=== PATIENT | female | born 1955 | race Caucasian/White ===

== ENCOUNTER 2021-09-09 08:37 | Outpatient (REF) | payer OTHER, SELFPAY ==
--- NOTE | ~2021-09-09 | XR_ITS ---
EXAMINATION: XR KNEE, BILATERAL XR KNEE, RIGHT XR KNEE, LEFT CLINICAL INFORMATION: Pain COMPARISON: 02/08/2021 TECHNIQUE: AP standing view of both knees. Lateral and sunrise view of both knees. FINDINGS: Left knee: No acute fracture or subluxation. Mild medial compartment joint space narrowing. Small tricompartmental marginal osteophytes. No significant joint effusion. Prominent varicosities noted. Right knee: No fracture or subluxation. Mild medial compartment joint space narrowing. Tricompartmental marginal osteophytes. No significant joint effusion. Prominent varicosities. XR/XR knee LT 2V IMPRESSION: Mild tricompartmental degenerative changes of both knees, greatest at the medial compartments.
--- NOTE | ~2021-09-09 | XR_ITS ---
EXAMINATION: XR KNEE, BILATERAL XR KNEE, RIGHT XR KNEE, LEFT CLINICAL INFORMATION: Pain COMPARISON: 02/08/2021 TECHNIQUE: AP standing view of both knees. Lateral and sunrise view of both knees. FINDINGS: Left knee: No acute fracture or subluxation. Mild medial compartment joint space narrowing. Small tricompartmental marginal osteophytes. No significant joint effusion. Prominent varicosities noted. Right knee: No fracture or subluxation. Mild medial compartment joint space narrowing. Tricompartmental marginal osteophytes. No significant joint effusion. Prominent varicosities. XR/XR knee standing BI IMPRESSION: Mild tricompartmental degenerative changes of both knees, greatest at the medial compartments.
--- NOTE | ~2021-09-09 | XR_ITS ---
EXAMINATION: XR KNEE, BILATERAL XR KNEE, RIGHT XR KNEE, LEFT CLINICAL INFORMATION: Pain COMPARISON: 02/08/2021 TECHNIQUE: AP standing view of both knees. Lateral and sunrise view of both knees. FINDINGS: Left knee: No acute fracture or subluxation. Mild medial compartment joint space narrowing. Small tricompartmental marginal osteophytes. No significant joint effusion. Prominent varicosities noted. Right knee: No fracture or subluxation. Mild medial compartment joint space narrowing. Tricompartmental marginal osteophytes. No significant joint effusion. Prominent varicosities. XR/XR knee RT 2V IMPRESSION: Mild tricompartmental degenerative changes of both knees, greatest at the medial compartments.
== END 2021-09-09 08:38 | disposition home or self-care (01) ==
LOC: HO.HOSX 08:37
PROVIDERS: Visit Provider Orthopaedic Surgery
DX: M17.12 Unilateral primary osteoarthritis, left knee (principal); M25.561 Pain in right knee
CPT/HCPCS: 73560; 73565

== ENCOUNTER 2022-03-18 06:09 | Inpatient (IN) | payer MEDICARE, OTHER, SELFPAY ==
[2022-03-11 12:15] VITALS: BP 138/80; PULSE 71; RESP 20; O2SAT 96; BMI 35.4
--- NOTE | 2022-03-11 13:08 | ECG_ITS ---
Test Reason : pre-op Blood Pressure : / mmHG Vent. Rate : 066 BPM Atrial Rate : 066 BPM P-R Int : 134 ms QRS Dur : 086 ms QT Int : 416 ms P-R-T Axes : 001 042 033 degrees QTc Int : 436 ms Sinus rhythm with occasional Premature ventricular complexes Otherwise normal ECG When compared with ECG of 23-JAN-2010 11:56, Premature ventricular complexes are now Present Referred By: Brandon Recinos Electronically Signed By:Rajeev Santana
[2022-03-11 14:29] LABS: MRSA Nasal PCR NEGATIVE (Negative); SA Nasal PCR NEGATIVE (Negative)
--- NOTE | 2022-03-17 08:53 | HO.ANESPROP2 ---
Documented by User: Stacy Zazueta NP 03/17/22 08:56 HPI - Anesthesia Eval Consult details Narrative: 67yo F for Left Knee Replacement Total PCP cleared [facility] Active Problems Active Problems: All Active Problems (Updated 03/11/22 @ 12:11 by Lo Mari RN) Osteoarthritis of left knee (Acute) Past Medical History Medical History Arthritis COVID-19 vaccine series completed Depression Elevated cholesterol Hypothyroid Palpitations Surgical History Surgical History H/O colonoscopy History of cardiac radiofrequency ablation (RFA) Hx laparoscopic cholecystectomy Hx of hemorrhoidectomy Hx of varicose vein ligation Social History Social History Household Members: Family Housing: House Are you a primary healthcare administrator to a significant other at home: No Do you presently have visiting nurse or other home services: No Patient Tobacco Use Status: Former Tobacco user Quit Date: age 30's Tobacco use type: Cigarette Use of substances other than those prescribed or required for medical reasons: No Have you been hit, kicked, punched, or otherwise hurt by someone within the past year? If so, by whom?: No Do you feel safe in your current relationship?: Yes Is there a partner from a previous relationship who is making you feel unsafe now?: No Are you made to feel afraid or neglected: No Are you DNR?: No Advance Directives: No Advance Directives Information Provided: Yes (brochure) Advance Directives on File: No Do you have thoughts of harming others: None Do you have a plan to hurt others: No Plan Recently lost weight without trying: No Eating poorly because of decreased appetite: No Nutrition Risks: No Nutritional Risk Patient : No : No Poor oral hygiene: No Meds Allergies Allergy/AdvReac Type Severity Reaction Status Date / Time Sulfa (Sulfonamide Allergy Intermediate Rash Verified 03/18/22 11:31 Antibiotics) [SULFA (SULFONAMIDE ANTIBIOTICS)] atorvastatin AdvReac Intermediate stomach Verified 03/18/22 11:31 pain Home Medications Medication Instructions Recorded Confirmed Last Taken Type aspirin 81 mg tablet,delayed 81 mg PO DAILY 09/09/21 03/11/22 03/08/22 History release (Adult Aspirin Regimen) fluoxetine 20 mg tablet 40 mg PO DAILY 09/09/21 03/11/22 03/18/22 History levothyroxine 50 mcg capsule 50 mcg PO DAILY 09/09/21 03/11/22 03/18/22 History rosuvastatin 10 mg tablet 10 mg PO DAILY 09/09/21 03/11/22 Unknown History meloxicam 15 mg tablet 1 tab PO DAILY 03/11/22 03/11/22 03/08/22 History Exam Exam Date and Time: March 17, 2022 0853 Height,Weight and Vital Signs: Height 5 ft 6 in Weight 99.5 kg Last Vital Signs Pulse 71 03/11/22 12:15 Resp 20 03/11/22 12:15 BP 138/80 03/11/22 12:15 Pulse Ox 96 03/11/22 12:15 O2 Del Method 03/11/22 12:15 Pertinent Lab Results Pertinent Lab Results: Laboratory Tests 03/11/22 03/11/22 12:30 12:55 Nasal Screen MRSA (PCR) NEGATIVE Nasal S. aureus Screen NEGATIVE Nasal MRSA/S.aureus Interp SEE NOTE Blood Type O Positive Antibody Screen NEGATIVE CBC and BMP from outside facility 03/2022 WNL Narrative Narrative: EKG 03/2022 Vent. Rate : 066 BPM ? ? Atrial Rate : 066 BPM ?? P-R Int : 134 ms? QRS Dur : 086 ms ? ? QT Int : 416 ms ? ? ? P-R-T Axes : 001 042 033 degrees ?? QTc Int : 436 ms ? Sinus rhythm with occasional Premature ventricular complexes Otherwise normal ECG When compared with ECG of 23-JAN-2010 11:56, Premature ventricular complexes are now Present Assessment and Plan Assessment Anesthesia Assessment: Chart Reviewed Documented by User: Ken Wallace MD 03/18/22 16:23 PMF Past Medical History Medical History Arthritis COVID-19 vaccine series completed Depression Elevated cholesterol Hypothyroid Palpitations Family History Family history of problems with anesthesia: No Surgical History Surgical History H/O colonoscopy History of cardiac radiofrequency ablation (RFA) Hx laparoscopic cholecystectomy Hx of hemorrhoidectomy Hx of varicose vein ligation History of Problems with Anesthesia: No Social History Social History Household Members: Family Housing: House Are you a primary healthcare administrator to a significant other at home: No Do you presently have visiting nurse or other home services: No Patient Tobacco Use Status: Former Tobacco user Quit Date: age 32's Tobacco use type: Cigarette Use of substances other than those prescribed or required for medical reasons: No Have you been hit, kicked, punched, or otherwise hurt by someone within the past year? If so, by whom?: No Do you feel safe in your current relationship?: Yes Is there a partner from a previous relationship who is making you feel unsafe now?: No Are you made to feel afraid or neglected: No Are you DNR?: No Advance Directives: No Advance Directives Information Provided: Yes (brochure) Advance Directives on File: No Do you have thoughts of harming others: None Do you have a plan to hurt others: No Plan Recently lost weight without trying: No Eating poorly because of decreased appetite: No Nutrition Risks: No Nutritional Risk Patient : No : No Poor oral hygiene: No Meds Allergies Allergy/AdvReac Type Severity Reaction Status Date / Time Sulfa (Sulfonamide Allergy Intermediate Rash Verified 03/18/22 11:31 Antibiotics) [SULFA (SULFONAMIDE ANTIBIOTICS)] atorvastatin AdvReac Intermediate stomach Verified 03/18/22 11:31 pain Home Medications Medication Instructions Recorded Confirmed Last Taken Type aspirin 81 mg tablet,delayed 81 mg PO DAILY 09/09/21 03/11/22 03/08/22 History release (Adult Aspirin Regimen) fluoxetine 20 mg tablet 40 mg PO DAILY 09/09/21 03/11/22 03/18/22 History levothyroxine 50 mcg capsule 50 mcg PO DAILY 09/09/21 03/11/22 03/18/22 History rosuvastatin 10 mg tablet 10 mg PO DAILY 09/09/21 03/11/22 Unknown History meloxicam 15 mg tablet 1 tab PO DAILY 03/11/22 03/11/22 03/08/22 History Exam Airway Mallampati Class: III TM Dist: >3cm Neck ROM: Full Partial: Upper and Lower Loose/Missing/Broken Teeth: Yes Heart: S1,S2 Lungs: b/l breath sounds Assessment and Plan Assessment Anesthesia Assessment: Anesthesia Plan Discussed Final Anesthetic Review Family History of Problems with Anesthesia: No History of Problems with Anesthesia: No NPO: Yes ASA Class: II Final Preanesthetic Review: Meds/Allgs Chart Reviewed, Consent Obtained/Reviewed and Anes Risks/Benef Reviewed Patient Risk: Intermediate Procedure Risk: Intermediate Anesthetic Plan Anesthetic Plan: Spinal and Regional Block Disposition: Standard PACU
[2022-03-18] VITALS (14 sets, daily range): BP systolic 87–166; BP diastolic 56–86; PULSE 54–77; RESP 13–18; TEMP 36.4–37.7; O2SAT 91–98
--- NOTE | ~2022-03-18 | XR_ITS ---
EXAMINATION: XR KNEE, LEFT CLINICAL INFORMATION: Left total knee arthroplasty. COMPARISON: Most recent left knee radiographs dated 09/09/2021. TECHNIQUE: AP and lateral views of the left knee. FINDINGS: Prosthetic components of the left total knee arthroplasty are appropriately aligned. No periprosthetic fracture. Gas from recent surgery is present in the joint and surrounding soft tissues. A joint effusion is present. XR/XR knee LT 2V IMPRESSION: Appropriate alignment of the left total knee arthroplasty.
[2022-03-18] MEDS: Lactated Ringers 1,000 ML 100 ML IVCONT ×3 (07:03→19:49)
[2022-03-18 07:08] LABS: COVID-19 Test Negative (Negative); IDNOW Serial# 9DB6401D
--- NOTE | 2022-03-18 07:46 | MHC.SHP ---
Pre-Procedural Eval Section A Date of Service: 03/18/22 The patient is an INPATIENT: No Changes since office visit: No Cold of Flu in the past 2 weeks, No New Medical Problems, No Changes in Medication and No Patient answered all questions The History & Physical has been completed within 30 days and I have reviewed it.: Yes Section B Chief Complaint: lt tka Allergies: Allergies Allergy/AdvReac Type Severity Reaction Status Date / Time Sulfa (Sulfonamide Allergy Intermediate Rash Verified 03/13/22 09:57 Antibiotics) [SULFA (SULFONAMIDE ANTIBIOTICS)] atorvastatin AdvReac Intermediate stomach Verified 03/13/22 09:57 pain Plan I have reviewed the history and physical and performed a pertinent physical examination on my patient. No changes have occurred unless specified.
--- NOTE | 2022-03-18 09:32 | PM.OP ---
Brief Operative Note Date of Service: 03/18/22 Pre-op diagnosis: Left knee OA Post-op diagnosis: same Procedure: Left TKA Implants: [employer] Triathalon press fit cruciate retaining s/32a Surgeon: Brandon Recinos MD Anesthesia: regional and spinal Was an Information Security Architect used for this Procedure?: Yes Information Security Architect: Neeru Villalobos Estimated blood loss (mL): 200 IV fluids (mL): 1,000 Pathology: other Condition: stable Disposition: PACU
--- NOTE | 2022-03-18 11:43 | P.OP_ITS ---
Operative Note Operative Note Date of Service: 03/18/22 Narrative: Date of Service: 03/18/22 Pre-op diagnosis: Left knee OA Post-op diagnosis: same Procedure: Left TKA Implants: Monica Triathalon press fit cruciate retaining 4/5/9cs/32a Surgeon: Brandon Recinos MD Anesthesia: regional and spinal Was an Automotive Engineering Technician used for this Procedure?: Yes Automotive Engineering Technician: Neeru Villalobos Estimated blood loss (mL): 200 IV fluids (mL): 1,000 Pathology: other Condition: stable Disposition: PACU Procedure in detail: The patient was brought to the operating room and prepped and draped in standard sterile fashion. A time-out was called to identify proper site proper procedure proper surgeon and IV antibiotics were administered. 1 g of IV tranexamic acid was administered. I began by making a midline incision to the retinaculum and performed a medial parapatellar arthrotomy. The patella was translated laterally and the knee was flexed up. The medial compartment was eburnated . I performed a small medial peel and resected the infrapatellar fat pad. [place]'s line was then used to drill my intramedullary femoral guide and my distal femur cut of 10 mm was made in 5 degrees of valgus while protecting the soft tissues. I then measured a #4 femur and placed my cutting guide and made my anterior posterior and chamfer cuts protecting the soft tissues at all times. Once I was satisfied with my cuts I turned my attention to the tibia. I removed the meniscus medially and laterally and , using an external cutting guide, in line with the tibial crest and the third ray, I made my distal tibial cut in 3 deg slope of while protecting the PCL the posterior soft tissues at all times. An extension block was used to confirm appropriate amount of bony resection. I then sized a #5 tibia and once I was satisfied that there was complete tibial coverage I placed my trial and with the trial femur in place took the knee through range of motion. I was satisfied with the extension and flexion as well as the stability and balance at 0, 30 and 90 degrees. I then turned my attention to the patella where I removed 1 cm from the undersurface of the patella and then trialed a 32a patellar button. Again the knee was taken through range of motion I was satisfied with the tracking. I then returned to the femur and drilled my femoral lug holes and prepared the tibia. A femoral bone plug was placed and the knee was irrigated copiously. I then press fit the patella, tibia and femur in standard fashion. I trialed different inserts until I selected a #9insert. The final insert was placed and a 3 minutes iodine soak with local TXA was performed. A Werewolf cautery wand was used to maintain hemostasis over the capsule and meniscal beds, the gutters and peripatellar soft tissues. The knee was then closed with a running Quill suture, a 3 0 Vicryl and alma delia on the skin. Patient was then placed in sterile dressing and brought to recovery room in stable condition there were no known complications.
[2022-03-18] MEDS: HYDROmorphone HCl 0.5 MG/0.5 ML SYRINGE 0.25 MG IVPUSH (12:15)
--- NOTE | 2022-03-18 12:19 | P.CDIC_ITS ---
CDI Concurrent Query Documentation Clarification: PHYSICIAN'S DOCUMENTATION REQUEST Date of Query: 03/18/22 1219 Patient Name: Di Terrell Admit Date: 03/18/22 Dear Doctor, A review of the medical record indicates additional documentation may be needed. Please review below and update the documentation accordingly. Risk Factors/Clinical Indicators/Treatments Body mass index: 35.4 5' 6 in height If possible, please provide an associated diagnosis related to the abnormal BMI, such as: For a BMI >= 35: * Overweight * Obesity * Due to excess calories * Drug induced * Due to other cause Or: * BMI is not significant * Other (please specify) * Unable to determine Use of terms such as suspected, likely, concern for, or probable (associated with a specific diagnosis that is being evaluated, monitored, or treated as if it exists) are acceptable and can be coded in the inpatient setting, when documented at the time of discharge. Thank you, Fiordaliza Camarena [facility], CDIS Extension: [phone] Please use your independent medical judgment in providing your response. THIS QUERY IS PART OF THE PERMANENT MEDICAL RECORD Provider Response: Obesity
[2022-03-18] MEDS: ondansetron HCL 4 MG/2 ML VIAL IVPUSH (13:04)
[2022-03-18] MEDS: Acetaminophen 325 MG TABLET 650 MG PO (13:11)
[2022-03-18] MEDS: oxyCODONE HCl Immed Release 5 MG TABLET PO ×3 (13:12→22:18)
[2022-03-18] MEDS: ceFAZolin Sodium/Dextrose,Iso 2 GM/50 ML PIGGYBACK IV (13:15)
[2022-03-18] MEDS: oxyCODONE HCl ER 10 MG TAB.ER.12H PO (19:47)
[2022-03-18] MEDS: Docusate Sodium 100 MG CAPSULE PO (19:47)
[2022-03-19] VITALS (8 sets, daily range): BP systolic 135–148; BP diastolic 68–84; PULSE 61–86; RESP 16–18; TEMP 36.6–37.6; O2SAT 91–92
[2022-03-19] MEDS: oxyCODONE HCl Immed Release 5 MG TABLET PO ×5 (02:09→21:38)
[2022-03-19] MEDS: Lactated Ringers 1,000 ML 100 ML IVCONT ×2 (05:57→17:41)
[2022-03-19] MEDS: Levothyroxine Sodium 50 MCG TABLET PO (05:57)
[2022-03-19 06:15] LABS: MANUAL DIFF FLAG NO
[2022-03-19 06:25] LABS: Basophils Percent Auto 0.3 % (0-2); Eosinophils Absolute Auto 0.1 X10*3/uL (0.0-0.4); Eosinophils Percent Auto 0.7 % (0-4); Hematocrit 33.5 % (37.0-47.0); Hemoglobin 11.2 g/dl (12.0-16.0); Imm Gran Abs Auto 0.07 X10*3/uL (0.00-0.03); Imm Gran Pct Auto 0.7 % (0.0-0.4); Lymphocytes Percent Auto 10.3 % (20-40); Mean Corpuscular HGB Conc 33.4 g/dl (31.0-35.0); Mean Corpuscular Hemoglobin 30.5 pg (27.0-33.0); Mean Corpuscular Volume 91.3 fL (80.0-98.0); Mean Platelet Volume 10.3 fL (9.4-12.3); Monocytes Absolute Auto 0.9 X10*3/uL (0.1-1.2); Monocytes Percent Auto 9.5 % (2-11); Neutrophils Absolute Auto 7.6 x10*3/uL (2.0-8.3); Neutrophils Percent Auto 78.5 % (45-73); Platelet Count 191 X10*3/uL (160-400); Red Blood Count 3.67 X10*6/uL (4.20-5.50); Red Cell Distribution Width 13.5 % (11.0-16.0); White Blood Count 9.7 X10*3/uL (4.8-10.8)
[2022-03-19 07:03] LABS: Anion Gap 9 (12-20); Blood Urea Nitrogen 13 mg/dL (9-16); Calcium 8.1 mg/dL (8.4-10.2); Carbon Dioxide 28 mmol/L (22-29); Chloride 101 mmol/L (96-108); Creatinine Clr Calc Pharmacy 107.6; Estimated Glomerular Filt Rate > 60; Glucose Fasting 125 mg/dL (60-99); Potassium 4.3 mmol/L (3.3-5.1); Sodium 134 mmol/L (135-145)
--- NOTE | 2022-03-19 07:16 | PHA.MEDREC ---
Pharmacy Consult ? Medication Reconciliation Pharmacy has reviewed the medication reconciliation completed by nursing. Morenita Bull, RonyD
--- NOTE | 2022-03-19 07:53 | PM.PNORT ---
Subjective Subjective Date of Service: 03/19/22 Interval history: POD1 status post left total knee. Patient is resting in bed. Difficult with pain management overnight. Medication adjustments made. No additional complaints. Physical Exam Vital Signs: Vital Signs: Last Vital Signs Temp 99.0 F 03/19/22 07:26 Pulse 68 03/19/22 07:26 Resp 16 03/19/22 07:26 BP 139/80 03/19/22 07:26 Pulse Ox 92 03/19/22 07:26 O2 Del Method 03/19/22 07:26 O2 Flow Rate 5 03/18/22 09:42 BMI result Body Mass Index 35.4 Const: General: cooperative, healthy appearing and no acute distress Resp: Effort & Inspection: normal respiratory effort and able to speak in complete sentences Cardio: Rate: regular rate Peripheral pulses: Peripheral pulses 2+ throughout GI: Palpation (GI): Soft to palpation Skin: Lesions: no lesions Rashes: no rashes Extrem: Other: Left knee Aquacel is clean dry and intact. Patient is able to dorsiflex and plantar flex. NVI. Procedures Date of Service Date of Service: 03/19/22 Progress Note: A&P Assessment and plan (1) Status post total knee replacement, left: Status: Acute Assessment and Plan: Continue pain mgmnt Begin aspirin for dvt ppx begin PT for left total knee arthroplasty - WBAT Dispo planning-Pending PT eval, pain mgmnt Time Spent With Patient Time: Total time spent is greater than 50% in coordination of care (as documented) at patient's floor/unit and/or counseling patient: Quality Stroke Does the patient have a stroke diagnosis?: No VTE Prior VTE?: No VTE Risk Level:: Medical - moderate - high VTE Device Contraindication: N/A - Device Ordered VTE Drug Contraindication: N/A - Med Ordered
[2022-03-19] MEDS: oxyCODONE HCl ER 10 MG TAB.ER.12H PO ×2 (09:23→20:34)
[2022-03-19] MEDS: Aspirin 325 MG TABLET PO ×2 (09:24→20:35)
[2022-03-19] MEDS: FLUoxetine HCl 20 MG CAPSULE 40 MG PO (09:25)
[2022-03-19] MEDS: Docusate Sodium 100 MG CAPSULE PO ×2 (09:25→20:35)
--- NOTE | 2022-03-19 11:30 | HO.POSTANES ---
Post Anesthesia Evaluation Post Anesthesia Evaluation Vital Signs: Vital Signs Temp Pulse Resp BP Pulse Ox O2 Del Method 03/19/22 11:12 98.3 F 70 17 144/78 H 92 Room Air 03/19/22 09:29 68 139/80 92 03/19/22 08:06 99.0 F 68 16 139/80 92 Room Air 03/19/22 03:39 98.1 F 86 18 135/84 92 Room Air Anesthesia: Spinal and Nerve Block Mental Status: Awake Pain Control: Satisfactory (difficulty controlling pain) Nausea/Vomiting: None Hydration: Adequate Anesthesia-Related Issues: No Anes. Related Issues
--- NOTE | 2022-03-19 14:54 | MHC.CM.PN ---
s/p TKA. Met with patient and her daughter regarding dc plan. Patient lives with her and daughter. Independent at baseline. PT Recommending rehab, patient and daughter agreeable to rehab. Provided them with list of SNFs in area. [facility]st choice [facility]. Daughter will discuss with family for other choices. Educated patient on HCP, she declined to complete one at this time. Referral sent to [facility].
[2022-03-19] MEDS: 0.9 % Sodium Chloride Flush 3 ML SYRINGE IVFLUSH (20:36)
[2022-03-20] MEDS: oxyCODONE HCl Immed Release 5 MG TABLET PO ×3 (02:30→12:54)
[2022-03-20] MEDS: Lactated Ringers 1,000 ML 100 ML IVCONT (02:37)
[2022-03-20 03:55] VITALS: BP 149/78; PULSE 70; RESP 17; TEMP 36.4; O2SAT 93
[2022-03-20] MEDS: Levothyroxine Sodium 50 MCG TABLET PO (06:01)
[2022-03-20 06:56] LABS: MANUAL DIFF FLAG NO
[2022-03-20 07:13] LABS: Basophils Percent Auto 0.4 % (0-2); Eosinophils Absolute Auto 0.5 X10*3/uL (0.0-0.4); Eosinophils Percent Auto 6.7 % (0-4); Hematocrit 31.3 % (37.0-47.0); Hemoglobin 10.2 g/dl (12.0-16.0); Imm Gran Abs Auto 0.05 X10*3/uL (0.00-0.03); Imm Gran Pct Auto 0.6 % (0.0-0.4); Lymphocytes Absolute Auto 0.9 X10*3/uL (1.2-4.9); Lymphocytes Percent Auto 10.8 % (20-40); Mean Corpuscular HGB Conc 32.6 g/dl (31.0-35.0); Mean Corpuscular Hemoglobin 30.2 pg (27.0-33.0); Mean Corpuscular Volume 92.6 fL (80.0-98.0); Mean Platelet Volume 10.6 fL (9.4-12.3); Monocytes Absolute Auto 0.9 X10*3/uL (0.1-1.2); Monocytes Percent Auto 11.1 % (2-11); Neutrophils Absolute Auto 5.6 x10*3/uL (2.0-8.3); Neutrophils Percent Auto 70.4 % (45-73); Platelet Count 182 X10*3/uL (160-400); Red Blood Count 3.38 X10*6/uL (4.20-5.50); Red Cell Distribution Width 13.8 % (11.0-16.0); White Blood Count 7.9 X10*3/uL (4.8-10.8)
[2022-03-20 07:15] LABS: Anion Gap 12 (12-20); Blood Urea Nitrogen 10 mg/dL (9-16); Carbon Dioxide 28 mmol/L (22-29); Chloride 104 mmol/L (96-108); Estimated Glomerular Filt Rate > 60; Glucose Fasting 107 mg/dL (60-99); Potassium 4.1 mmol/L (3.3-5.1); Sodium 140 mmol/L (135-145)
[2022-03-20 07:44] VITALS: BP 167/87; PULSE 74; RESP 18; TEMP 37.1; O2SAT 93
[2022-03-20] MEDS: FLUoxetine HCl 20 MG CAPSULE 40 MG PO (08:22)
[2022-03-20] MEDS: Aspirin 325 MG TABLET PO (08:23)
[2022-03-20] MEDS: oxyCODONE HCl ER 10 MG TAB.ER.12H PO (08:24)
[2022-03-20] MEDS: Docusate Sodium 100 MG CAPSULE PO (08:25)
--- NOTE | 2022-03-20 08:54 | P.DS_ITS ---
DS: Providers Provider Date of Service: 03/20/22 Date of admission: 03/18/22 06:09 Primary care physician: Attila Garza MD DS: Diagnosis Discharge Diagnosis (1) Status post total knee replacement, left: Status: Acute DS: Summary Hospital Course Hospital Course: The patient underwent a successful left total knee arthroplasty, was transferred to PACU and then to the floor to recover. During their stay, their vitals were stable, afebrile at 98.7. Labs were unremarkable, H/H 10.2/31.3. POD 1 she was started on ASA for DVT ppx, they also received services twice a day. Prior to discharge, their dressing was change, incision clean dry and intact, new Aquacel dressing applied and the plan was to be discharged to [facility] Time Spent with Patient Time attestation: Total time spent providing and/or coordinating discharge services: Discharge coordination time: Less than 30 minutes Quality: Safe Use of Opioids Does Pt have an Active Cancer Diagnosis on the Problem List?: No Quality: Stroke Does the patient have a stroke diagnosis?: No Physical Exam Vital Signs: Vital Signs: Last Vital Signs Temp 98.7 F 03/20/22 07:44 Pulse 74 03/20/22 07:44 Resp 18 03/20/22 07:44 BP 167/87 H 03/20/22 07:44 Pulse Ox 93 03/20/22 07:44 O2 Del Method 03/20/22 07:44 O2 Flow Rate 5 03/18/22 09:42 BMI result Body Mass Index 35.4 Const: General: cooperative, healthy appearing and no acute distress Resp: Effort & Inspection: normal respiratory effort and able to speak in complete sentences Cardio: Rate: regular rate Peripheral pulses: Peripheral pulses 2+ throughout GI: Palpation (GI): Soft to palpation Skin: General skin exam: no rashes or lesions noted Extrem: Other: incision clean dry and intact. [place] intact. No erythema or joint effusion. Calf supple nontender. Neurovascularly intact. DS: Data Data Completed and Pending Completed studies during hospitalization [Text1]: Pending at discharge 03/18/22 09:01 Surgical [PTH] Routine Labs on day of discharge: Laboratory Results - last 24 hr 03/20/22 03/20/22 06:50 06:50 WBC 7.9 RBC 3.38 L Hgb 10.2 L Hct 31.3 L MCV 92.6 MCH 30.2 MCHC 32.6 RDW 13.8 Plt Count 182 MPV 10.6 Immature Gran % (Auto) 0.6 H Neut % (Auto) 70.4 Lymph % (Auto) 10.8 L [place] % (Auto) 11.1 H Eos % (Auto) 6.7 H Baso % (Auto) 0.4 Lymph # (Auto) 0.9 L [place] # (Auto) 0.9 Eos # (Auto) 0.5 H Baso # (Auto) 0.0 Abs Immat Gran (auto) 0.05 H Absolute Neuts (auto) 5.6 Absolute Nucleated RBC 0.000 Nucleated RBC % (auto) 0.0 Sodium 140 Potassium 4.1 Chloride 104 Carbon Dioxide 28 Anion Gap 12 BUN 10 Creatinine 0.57 Estim Creat Clear Calc 117.0 Estimated GFR > 60 Fasting Glucose 107 H Calcium 8.0 L Discharge Plan Discharge Patient Disposition: Xfer SNF Discharge Diagnosis: LT TKA Referrals: Neeru Villalobos PA-C [Phys[facility]] - 2 Weeks (04/03/22 12:30 [facility] Neeru Villalobos PA-C) Discharge Medications: New oxycodone 5 mg Tablet 5 mg PO Q4H PRN (Reason: Pain, Moderate (Pain Scale 4-6) 7 Days Qty: 42 0RF Rx Instructions: Partial Fill upon patient request. docusate sodium 100 mg Capsule 100 mg PO BID 14 Days Qty: 28 0RF aspirin 325 mg Tablet 325 mg PO BID 42 Days Qty: 84 0RF acetaminophen 325 mg tablet 650 mg PO Q6H PRN (Reason: Pain, Mild (Pain Scale 1-3)) 30 Days Qty: 240 0RF Continued (DME) walker [facility] [place] Rx Instructions .MEDSUPPLY Qty: 1 0RF Rx Instructions: Folding Front wheeled walker fluoxetine 20 mg tablet 40 mg PO DAILY levothyroxine 50 mcg capsule 50 mcg PO DAILY rosuvastatin 10 mg tablet 10 mg PO DAILY Discontinued meloxicam 15 mg tablet 1 tab PO DAILY aspirin [Adult Aspirin Regimen] 81 mg tablet,delayed release (DR/EC) 81 mg PO DAILY Discharge Orders: Discharge Order (Routine); Ordered 03/20/22 Ordered By: Neeru Villalobos Diet: Regular diet Activity on Discharge: Use cane or walker Stand Alone Forms: Patient Portal Discharge page Care Plan Goals: Restore function of joint Health Concerns: none Plan of Treatment: Physical Therapy Pain management DVT prophylaxis Assessment: Physical Therapy for Total knee arthroplasty: WBAT, gait training, ROM 0-12, quad strength * Limit stair climbing * No showering, no tub bath-keep dressing clean, dry and intact * No driving x6 weeks * Continue Aspirin twice a day x 6 weeks * Follow up with [facility] in 2 weeks: * --you will also have your first out patient PT eval on the day of your post op appt-so please plan on being in the office that day for an extended period of time.
[2022-03-20 09:31] VITALS: BP 167/87; PULSE 74; O2SAT 93
--- NOTE | 2022-03-20 10:12 | MHC.CM.PN ---
Addendum entered by Nikki Catalan 03/20/22 11:53: CM INFORMED [facility] HAS RECEIVED INSURANCE AUTH NEGATIVE COVID-19 RESULTS SENT TO SNF SNF AWARE PT WILL ARRIVE AT APPROX 1300 HOURS Original Note: PT CLEARED TO DC TODAY TO [facility] HAS SUBMITTED FOR INSURANCE AUTH AND REQUESTED A PCR COVID TEST PT WILL DC [facility]IA [facility] PENDING AUTH AND PCR TEST RESULTS
[2022-03-20 11:30] LABS: Influenza A PCR NEGATIVE (Negative); Influenza B PCR NEGATIVE (Negative); Resp Syncy Virus RNA Qual PCR NEGATIVE (Negative); SARS COV2 PCR INHOUSE NEGATIVE (Negative)
[2022-03-20 11:40] VITALS: BP 126/66; PULSE 70; RESP 18; TEMP 36.7; O2SAT 91
== END 2022-03-20 13:17 | disposition skilled nursing facility (03) | DRG 326 ==
LOC: HO.SSSA 06:12 → HO.S3 10:53
PROVIDERS: Physician Assistant; Admitting Provider Orthopaedic Surgery; PCP Internal Medicine; Visit Provider Orthopaedic Surgery
PROC: 0SRD0JA Replacement of Left Knee Joint with Synthetic Substitute, Uncemented, Open Approach (ICD-10-PCS; CPT 27447; principal; 2022-03-18 07:30)
DX: M17.12 Unilateral primary osteoarthritis, left knee (principal); E03.9 Hypothyroidism, unspecified; F32.A Depression, unspecified; E66.9 Obesity, unspecified; Z68.35 Body mass index [BMI] 35.0-35.9, adult; Z20.822 Contact with and (suspected) exposure to COVID-19; Z87.891 Personal history of nicotine dependence; Z79.890 Hormone replacement therapy; Z79.899 Other long term (current) drug therapy
CPT/HCPCS: 27447; 0241U; 36415; 73560; 80048; 85025; 86850; 86900; 86901; 87635; 87640; 87641; 88305; 88311; 93005; 97110; 97116; 97162; 97530; C1776; J0131; J0690; J1170; J2250; J2405; J2795; U0003; U0005

== ENCOUNTER 2022-05-21 15:04 | Outpatient (REF) | payer MEDICARE, OTHER, SELFPAY ==
--- NOTE | ~2022-05-21 | US_ITS ---
EXAMINATION: US VENOUS ULTRASOUND WITH DOPPLER LOWER EXTREMITY, LEFT CLINICAL INFORMATION: Swelling COMPARISON: None TECHNIQUE: Ultrasound of the deep veins is performed from the hip to the calf with compression sonography and color and pulse Doppler assessment. Spectral analysis with color-flow imaging is performed. FINDINGS: There is normal venous compression and respiratory variation and augmented flow. The visualized common femoral vein, superficial femoral vein, profunda femoral vein, popliteal vein, and the trifurcation region shows no evidence of deep venous thrombosis. There is no significant popliteal fossa cyst. There is a large heterogeneous avascular soft tissue mass at the left groin. This measures 2 x 3 x 3 cm. This abuts the greater saphenous vein. It is uncertain whether this represents a hematoma, thrombosed varicosity or venous aneurysm, or possibly thrombosed pseudoaneurysm. Less likely considerations would be a soft tissue mass and an abnormal lymph node. US/US venous duplex LE IMPRESSION: No DVT demonstrated in the left lower extremity. 2 x 3 cm heterogeneous avascular soft tissue mass in the left groin of uncertain etiology. Follow-up arterial and venous insufficiency left leg ultrasound recommended for further evaluation. Findings will be communicated by the [facility] work flow operating room scheduler.
== END 2022-05-21 15:05 | disposition home or self-care (01) ==
LOC: HO.US 15:04
PROVIDERS: PCP Internal Medicine; Visit Provider Physician Assistant
DX: R60.9 Edema, unspecified (principal); M79.89 Other specified soft tissue disorders; Z96.652 Presence of left artificial knee joint
CPT/HCPCS: 93971

== ENCOUNTER 2022-06-04 08:00 | Outpatient (RCR) | payer MEDICARE, OTHER, SELFPAY ==
--- NOTE | 2022-06-24 07:25 | MHC.PT.DC ---
[facility] [place] [facility] [place] [facility] [place] [facility] [address] [phone] F: [phone] F: [phone] F: [phone] F: [phone] Physical Therapy Discharge Report Diagnosis: LEFT TKR Date of Surgery: 03/18/22 Date of Evaluation: 04/16/22 Date of Discharge: 06/12/22 Treatments to Date: 14 Cancellations to Date: 0 No Shows to Date: 0 Discharge Status: Patient Elected to Stop Discharge Summary: Minimal edema conts but Di was able to perform squat to nearly 90 degrees without any difficulty. She was challenged with glute activation during hip abd and benefitted from cuing to decreased hip hike/QL activation. Spoke with pt and dtr who feel she is independent with HEP and doing well at home. They request D/C at this time which is agreeable. Electronically signed by: Amanda Ta PT, DPT Please sign and return to therapist. Thank you for your referral.
== END 2022-06-24 07:24 | disposition home or self-care (01) ==
LOC: HO.PT 08:00
PROVIDERS: PCP Internal Medicine; Visit Provider Orthopaedic Surgery
DX: Z96.652 Presence of left artificial knee joint (principal)
CPT/HCPCS: 97110; 97116; 97161; 97530

== ENCOUNTER → 2022-06-11 09:24 | Outpatient (BNVA) | payer MEDICARE, OTHER, SELFPAY | PROVIDERS: PCP Internal Medicine; Visit Provider Surgery Vascular Surgery | DX: I72.4 Aneurysm of artery of lower extremity (principal) | CPT/HCPCS: 99202 ==

== ENCOUNTER 2022-06-12 | Outpatient (REF) | payer MEDICARE, OTHER, SELFPAY ==
--- NOTE | ~2022-06-12 | XR_ITS ---
EXAMINATION: BILATERAL KNEE X-RAY CLINICAL INFORMATION: Post knee replacement COMPARISON: Previous x-ray most recent March 2022 TECHNIQUE: Standing AP view of both knees and lateral and sunrise view of the left knee FINDINGS: Left: There is a left 3 component knee replacement in satisfactory position. No acute fracture, dislocation or x-ray evidence of loosening is seen. There is a well-corticated ossicle ossification adjacent to the medial femoral condyle likely related to old injury. There is a large joint effusion. Standing AP view of the right knee demonstrates arthritis at the medial femoral tibial joint. XR/XR knee LT 2V IMPRESSION: Left: 3 component left knee replacement in satisfactory position. Large joint effusion. Arthritis at the right medial femoral tibial joint.
--- NOTE | ~2022-06-12 | XR_ITS ---
EXAMINATION: BILATERAL KNEE X-RAY CLINICAL INFORMATION: Post knee replacement COMPARISON: Previous x-ray most recent March 2022 TECHNIQUE: Standing AP view of both knees and lateral and sunrise view of the left knee FINDINGS: Left: There is a left 3 component knee replacement in satisfactory position. No acute fracture, dislocation or x-ray evidence of loosening is seen. There is a well-corticated ossicle ossification adjacent to the medial femoral condyle likely related to old injury. There is a large joint effusion. Standing AP view of the right knee demonstrates arthritis at the medial femoral tibial joint. XR/XR knee standing BI IMPRESSION: Left: 3 component left knee replacement in satisfactory position. Large joint effusion. Arthritis at the right medial femoral tibial joint.
== END 2022-06-12 00:01 | disposition home or self-care (01) ==
LOC: HO.HOSX
PROVIDERS: Visit Provider Orthopaedic Surgery
DX: M25.562 Pain in left knee (principal)
CPT/HCPCS: 73560; 73565

== ENCOUNTER → 2022-06-12 09:13 | Outpatient (BNVA) | payer MEDICARE, OTHER, SELFPAY | PROVIDERS: PCP Internal Medicine; Visit Provider Orthopaedic Surgery | DX: Z47.1 Aftercare following joint replacement surgery (principal); Z96.652 Presence of left artificial knee joint | CPT/HCPCS: 99212 ==

== ENCOUNTER 2022-06-12 19:58 | Emergency (ER) | payer MEDICARE, OTHER, SELFPAY ==
[2022-06-12 20:30] VITALS: BP 147/77; PULSE 76; RESP 20; TEMP 37.4; O2SAT 97; BMI 33.7
--- NOTE | 2022-06-13 00:54 | ED_ITS ---
HPI - Wound/Laceration General Chief Complaint: Wound/Laceration Stated Complaint: Hand cut, bleeding since 1500 Time Seen by Provider: 06/13/22 00:54 Source: patient Mode of arrival: ambulatory Limitations: no limitations History of Present Illness HPI narrative: 67-year-old female history of pseudoaneurysm of the femoral artery, status post total left knee replacement, osteoarthritis presents to the emergency department with a laceration to right index finger status post cutting herself while slicing apples with a mandoline. Tells me that this occurred at approximately 15:00. Patient denies numbness, tingling, fevers, chills, chest pain, shortness of breath. Initially she tells me bleeding was hard to stop however at this time bleeding controlled and has slowed down. On Asa. Up-to-date on tetanus sh ot. Related Data Home Medications Medication Instructions Recorded Confirmed fluoxetine 20 mg tablet 40 mg PO DAILY 09/09/21 03/11/22 levothyroxine 50 mcg capsule 50 mcg PO DAILY 09/09/21 03/11/22 rosuvastatin 10 mg tablet 10 mg PO DAILY 09/09/21 03/11/22 Previous Rx's Medication Instructions Recorded walker #1 ea 02/26/22 acetaminophen 325 mg tablet 650 mg PO Q6H PRN Pain, Mild (Pain 03/20/22 Scale 1-3) 30 days #240 tabs aspirin 325 mg tablet 325 mg PO BID 42 days #84 tabs 03/20/22 docusate sodium 100 mg capsule 100 mg PO BID 14 days #28 caps 03/20/22 cephalexin 500 mg tablet 500 mg PO Q6H 7 days #28 tabs 06/13/22 doxycycline hyclate 100 mg capsule 100 mg PO BID 7 days #14 caps 06/13/22 Allergies Allergy/AdvReac Type Severity Reaction Status Date / Time Sulfa (Sulfonamide Allergy Intermediate Rash Verified 06/12/22 09:19 Antibiotics) [SULFA (SULFONAMIDE ANTIBIOTICS)] atorvastatin AdvReac Intermediate stomach Verified 06/12/22 09:19 pain Review of Systems Review of Systems: Constitutional : No Fever, No Chills, Cardiovascular : No Chest Pain, No SOB Respiratory : No Dyspnea Gastrointestinal : No abdominal pain Musculoskeletal : No Joint Swelling Skin : No rash, positive skin laceration Neuro : No Weakness, No Numbness Psych : No SI/HI Yes all other systems are reviewed and are negative PMFSH Past Medical History Attestation statement: The following information was validated with the patient. Source: old records reviewed and nursing notes reviewed Medical History Arthritis COVID-19 vaccine series completed Depression Elevated cholesterol Hypothyroid Palpitations Surgical History H/O colonoscopy History of cardiac radiofrequency ablation (RFA) Hx laparoscopic cholecystectomy Hx of hemorrhoidectomy Hx of varicose vein ligation Social History Social History Household Members: Family Housing: House Are you a primary home care aide to a significant other at home: No Do you presently have visiting nurse or other home services: No Patient Tobacco Use Status: Former Tobacco user Quit Date: age 30's Tobacco use type: Cigarette Advance Directives: No service: No Current occupational status: unemployed Physical Exam Vital Signs: Vital Signs: Last Vital Signs Temp 99.4 F 06/12/22 20:30 Pulse 71 06/13/22 01:25 Resp 20 06/12/22 20:30 BP 155/86 H 06/13/22 01:25 Pulse Ox 97 06/13/22 01:25 O2 Del Method 06/13/22 01:25 BMI result Body Mass Index 33.7 vss Appearance: Alert.? Oriented X3.? No acute distress.? Head: Normocephalic, atraumatic, no step-offs or deformities CVS: Pulses normal.? Respiratory: No respiratory distress. Skin: Skin warm and dry.? Normal skin color.? Normal skin turgor.? Extremities: No lower extremity edema.? No calf ttp. 5/5 strength to bilateral upper and lower extremities +small avulsion to r. distal aspect of index finger. full range of motion to all digits, 2+ radial pulses equal bilateral, no signs of foreign body, capillary refill less than 2 seconds. Neuro: Oriented X 3.? No motor deficit.? No sensory deficit. Course Reevaluation(s) Reevaluation #1: Advised patient to return with new or worsening symptoms , educated on worrisome signs and symptoms and when to return. At this time I feel comfortable discharge home with prompt PCP follow-up. Will DC on atbx Time: 00:58 MDM - Wound/Laceration MDM Narrative Medical decision making narrative: [age]-year-old female presents to the emergency department with laceration to right index finger status post cutting herself while slicing apples. Tetanus status up-to-date. Denies numbness or tingling. Physical examination with aulsion to r distal aspect of index finger however full range of motion to all digits, 2+ radial pulses equal bilateral, no signs of foreign body, capillary refill less than 2 seconds. Low suspicion for fracture, dislocation as patient has full range of motion, neurovascular status intact. No need for imaging at this time. Will apply Surgicel and give Boostrix shot. Medical Records Attestation: I reviewed the patient's medical records. Lab Data Attestation: I reviewed the patient's lab results. Critical Care Time Critical Care Time Critical Care Time: No Discharge Plan Discharge Clinical Impression: Avulsion of skin Patient Disposition: Home, Self-Care Additional Instructions: Take your medications as prescribed. If you were prescribed antibiotics today, it is important that you take your medication to their entirety, do not skip any doses, do not finish them early. Follow-up with your primary care provider this week. Return to the emergency department with new or worsening symptoms. Such as fevers, chills, chest pain, shortness of breath, nausea, vomiting, dizziness, headache, vision changes, lethargy numbness, tingling, loss of sensation, pain with range of motion, redness or swelling or discharge from the site In case of emergency call 911 Keep dressing on for 24-48 hours. Prescriptions: New doxycycline hyclate 100 mg capsule 100 mg PO BID 7 Days Qty: 14 0RF cephalexin 500 mg tablet 500 mg PO Q6H 7 Days Qty: 28 0RF No Action (DME) walker Misc See Rx Instructions .MEDSUPPLY Qty: 1 0RF Rx Instructions: Folding Front wheeled walker docusate sodium 100 mg Capsule 100 mg PO BID 14 Days Qty: 28 0RF aspirin 325 mg Tablet 325 mg PO BID 42 Days Qty: 84 0RF acetaminophen 325 mg tablet 650 mg PO Q6H PRN (Reason: Pain, Mild (Pain Scale 1-3)) 30 Days Qty: 240 0RF fluoxetine 20 mg tablet 40 mg PO DAILY levothyroxine 50 mcg capsule 50 mcg PO DAILY rosuvastatin 10 mg tablet 10 mg PO DAILY Referrals: Attila Garza MD [Primary Care Provider] - 2 days Stand Alone Forms: Work/School Release
[2022-06-13 01:25] VITALS: BP 155/86; PULSE 71; O2SAT 97
== END 2022-06-13 02:01 | disposition home or self-care (01) ==
PROVIDERS: Emergency Provider Internal Medicine; PCP Internal Medicine
DX: S61.211A Laceration without foreign body of left index finger without damage to nail, initial encounter (principal); W27.8XXA Contact with other nonpowered hand tool, initial encounter; Y93.9 Activity, unspecified; Y92.000 Kitchen of unspecified non-institutional (private) residence as the place of occurrence of the external cause; Y99.9 Unspecified external cause status; Z79.899 Other long term (current) drug therapy
CPT/HCPCS: 99283

== ENCOUNTER 2022-06-19 16:55 | Outpatient (REF) | payer MEDICARE, OTHER, SELFPAY ==
[2022-06-19 17:04] LABS: MANUAL DIFF FLAG NO
[2022-06-19 17:23] LABS: Basophils Percent Auto 0.6 % (0-2); Eosinophils Absolute Auto 0.3 X10*3/uL (0.0-0.4); Eosinophils Percent Auto 3.6 % (0-4); Hematocrit 34.8 % (37.0-47.0); Hemoglobin 11.4 g/dl (12.0-16.0); Imm Gran Abs Auto 0.05 X10*3/uL (0.00-0.03); Imm Gran Pct Auto 0.7 % (0.0-0.4); Lymphocytes Absolute Auto 1.8 X10*3/uL (1.2-4.9); Lymphocytes Percent Auto 25.7 % (20-40); Mean Corpuscular HGB Conc 32.8 g/dl (31.0-35.0); Mean Corpuscular Hemoglobin 28.6 pg (27.0-33.0); Mean Corpuscular Volume 87.2 fL (80.0-98.0); Monocytes Absolute Auto 0.7 X10*3/uL (0.1-1.2); Monocytes Percent Auto 9.6 % (2-11); Neutrophils Absolute Auto 4.1 x10*3/uL (2.0-8.3); Neutrophils Percent Auto 59.8 % (45-73); Platelet Count 286 X10*3/uL (160-400); Red Blood Count 3.99 X10*6/uL (4.20-5.50); Red Cell Distribution Width 14.1 % (11.0-16.0); White Blood Count 6.9 X10*3/uL (4.8-10.8)
[2022-06-19 17:54] LABS: Anion Gap 18 (12-20); Blood Urea Nitrogen 22 mg/dL (9-16); Calcium 9.5 mg/dL (8.4-10.2); Carbon Dioxide 27 mmol/L (22-29); Chloride 102 mmol/L (96-108); Estimated Glomerular Filt Rate > 60; Glucose Random 150 mg/dL (60-115); Potassium 4.5 mmol/L (3.3-5.1); Sodium 142 mmol/L (135-145)
== END 2022-06-19 16:56 | disposition home or self-care (01) ==
LOC: HO.LAB 16:55
PROVIDERS: Orthopaedic Surgery; Visit Provider Surgery Vascular Surgery
DX: Z01.812 Encounter for preprocedural laboratory examination (principal)
CPT/HCPCS: 36415; 80048; 85025

== ENCOUNTER 2022-06-23 09:20 | Outpatient (REF) | payer MEDICARE, OTHER, SELFPAY ==
--- NOTE | ~2022-06-23 | CT_ITS ---
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 Images were reviewed on a dedicated 3-D workstation. This CT examination was performed using dose optimization techniques as appropriate, variously including the following: *Automated exposure control *Adjustment of mA and/or kV according to patient size (this includes techniques or standardized protocols for targeted exams where dose is matched to indication/reason for exam; i.e. extremities or head) *Use of iterative reconstruction technique DLP: 351 mGy-cm FINDINGS: Lower chest: Unremarkable. There are no pleural effusions. Liver: Normal in size and attenuation. There is a 1.3 cm left hepatic lobe cyst. Gallbladder and bile ducts: There has been prior cholecystectomy. No intrahepatic or extrahepatic biliary ductal dilatation. Spleen: Normal in size and attenuation. Pancreas: Unremarkable. Adrenal glands: Unremarkable. Right kidney: The right kidney is normal. There is no hydronephrosis or hydroureter. Left kidney: The left kidney is normal. There is no hydronephrosis or hydroureter. Lymph nodes: There are bilateral prominent inguinal lymph nodes. Gastrointestinal tract: The stomach, small, and large bowel are normal in course and caliber. The appendix is identified and is within normal limits. Urinary bladder: The bladder is normal. Pelvic organs: The uterus is unremarkable. Vasculature: The abdominal aorta is normal in course and caliber. Minimal calcific atherosclerotic disease. The celiac artery, SMA, single right renal artery, 2 left renal arteries, and COLEMAN are patent. The iliofemoral arteries are patent. The IVC and iliofemoral veins are patent and normal in caliber. There are multiple subcutaneous varicosities in the anterior pelvis. In the left inguinal region, there is a 2.5 cm peripherally enhancing from both cysts varix, possibly the proximal inferior epigastric vein. Additional findings: There is no intraperitoneal free air or fluid. Soft tissues: Unremarkable. Osseous structures: No lytic or blastic lesions identified. CT/CT angio abdomen pelvis IMPRESSION: Thrombosed anterior pelvic wall varix in the left inguinal region corresponds to the abnormality identified on the previous ultrasound. This possibly arises from the proximal inferior epigastric vein.
[2022-06-23] MEDS: iohexoL 350 MG/ML 100 ML INFUS..BTL IV (10:03)
== END 2022-06-23 09:21 | disposition home or self-care (01) ==
LOC: HO.CT 09:20
PROVIDERS: PCP Internal Medicine; Visit Provider Surgery Vascular Surgery
DX: I72.4 Aneurysm of artery of lower extremity (principal)
CPT/HCPCS: 74174; Q9967

== ENCOUNTER → 2022-07-29 15:18 | Outpatient (BNVA) | payer MEDICARE, OTHER, SELFPAY | PROVIDERS: PCP Internal Medicine; Visit Provider Surgery Vascular Surgery | DX: R10.32 Left lower quadrant pain (principal) | CPT/HCPCS: 99212 ==

== ENCOUNTER → 2022-09-12 09:22 | Outpatient (BNVA) | payer MEDICARE, SELFPAY | PROVIDERS: PCP Internal Medicine; Visit Provider Orthopaedic Surgery | DX: Z96.652 Presence of left artificial knee joint (principal) | CPT/HCPCS: 99212 ==

== ENCOUNTER 2022-09-22 15:56 | Emergency (ER) | payer MEDICARE, SELFPAY ==
--- NOTE | ~2022-09-22 | CT_ITS ---
EXAMINATION: CT ANGIOGRAM OF THE CHEST WITH AND WITHOUT CONTRAST (CT PULMONARY ANGIOGRAM FOR PE) CLINICAL INFORMATION: Reason for Exam cp with elevated d dimer COMPARISON: Chest radiograph from today TECHNIQUE: Prior to contrast administration, noncontrast localization images were obtained. Subsequently, multidetector volumetric imaging was performed from the thoracic inlet to below the diaphragms following the administration of 65 mL Omnipaque 350 intravenous contrast. No contrast reaction reported Sagittal, coronal, and MIP oblique sagittal reformatted images were obtained on the CT workstation, uploaded to PACS, and reviewed. This CT examination was performed using dose optimization techniques as appropriate, variously including the following: *Automated exposure control *Adjustment of mA and/or kV according to patient size (this includes techniques or standardized protocols for targeted exams where dose is matched to indication/reason for exam; i.e. extremities or head) *Use of iterative reconstruction technique Total exam dose-length product 407 mGy-cm FINDINGS: QUALITY OF STUDY/CONTRAST BOLUS: Satisfactory. PULMONARY ARTERIES: No central or segmental pulmonary emboli. THORACIC AORTA: No aneurysm or dissection. LUNG: No focal consolidation, nodules or masses. The central airways are patent. Minimal groundglass opacity at the bases, favoring atelectasis. PLEURA: No pleural effusion or pneumothorax. MEDIASTINUM: Prominent heart size. No pericardial effusion. No hilar or mediastinal lymphadenopathy. No evidence of septal bowing or right heart strain. CORONARY ARTERY CALCIFICATION: None visualized on this study. CHEST WALL/AXILLA: No axillary or internal mammary lymphadenopathy. OSSEOUS STRUCTURES: No acute or suspicious osseous abnormality. Multilevel degenerative changes throughout the spine. UPPER ABDOMEN: Cyst noted in the left lobe of the liver. Cholecystectomy. No acute abnormality in the visualized upper abdomen. No reflux of contrast into the hepatic veins to suggest elevated right heart pressures. CT/CT angio chest PE protocol IMPRESSION: No pulmonary embolism or other acute intrathoracic abnormality. VTE: negative
--- NOTE | ~2022-09-22 | XR_ITS ---
EXAMINATION: XR CHEST CLINICAL INFORMATION: Chest pain COMPARISON: None TECHNIQUE: Frontal view of the chest was obtained. FINDINGS: Bibasilar atelectasis. No pneumothorax. Trachea is midline. Cardiomediastinal silhouette is not enlarged. No large pleural effusion. Levocurvature of the thoracolumbar junction. Soft tissues are unremarkable. XR/XR chest 1V IMPRESSION: Bibasilar atelectasis.
[2022-09-22 16:02] VITALS: BP 170/121; PULSE 70; RESP 20; TEMP 36.6; O2SAT 99; BMI 35.3
--- NOTE | 2022-09-22 16:02 | ECG_ITS ---
Test Reason : CP Blood Pressure : / mmHG Vent. Rate : 072 BPM Atrial Rate : 072 BPM P-R Int : 140 ms QRS Dur : 082 ms QT Int : 372 ms P-R-T Axes : 005 023 036 degrees QTc Int : 407 ms Normal sinus rhythm Normal ECG When compared with ECG of 11-MAR-2022 13:10, Premature ventricular complexes are no longer Present Referred By: Felipe Arrington Electronically Signed By:LIBRADO BARRETT MD
--- NOTE | 2022-09-22 16:06 | ED_ITS ---
HPI - General Adult General Chief complaint: Chest Pain <АЛЕКСАНДР Navarrete - Last Filed: 09/23/22 11:29> Stated complaint: chest pain <АЛЕКСАНДР Navarrete - Last Filed: 09/23/22 11:29> Time Seen by Provider: 09/22/22 16:49 <АЛЕКСАНДР Navarrete - Last Filed: 09/23/22 11:29> Source: patient and family <Homero Samson MD - Last Filed: 09/22/22 22:48> Mode of arrival: ambulatory <Homero Samson MD - Last Filed: 09/22/22 22:48> Limitations: no limitations <Homero Samson MD - Last Filed: 09/22/22 22:48> History of Present Illness HPI narrative: Patient's history of cardiac arrhythmias status post ablation about 15 years ago no known coronary artery disease brought by her daughter for having left-sided chest pain for last 5 days off and on patient had chest pain 5 days ago lasted for 10 minutes stated in the left side of the chest felt like heav iness and pressure without any radiation no shortness of last 4 days patient have much pain today again she had pain similar to that started at noon time and still feels heaviness on the left side of the chest denies any palpitation feels slightly short of breath on ambulation also complaining of heartburn feeling which is separate and left-sided heaviness also has nausea no diaphoresis feels left ring finger is numb no cough patient took 324 mg aspirin prior to arrival takes baby aspirin daily <Homero Samson MD - Last Filed: 09/22/22 22:48> Related Data Home medications: Home Medications Medication Instructions Recorded Confirmed fluoxetine 20 mg tablet 40 mg PO DAILY 09/09/21 03/11/22 levothyroxine 50 mcg capsule 50 mcg PO DAILY 09/09/21 03/11/22 rosuvastatin 10 mg tablet 10 mg PO DAILY 09/09/21 03/11/22 aspirin 81 mg tablet,delayed 81 mg PO DAILY 09/12/22 release (Adult Low Dose Aspirin) Previous Rx's Medication Instructions Recorded walker #1 ea 02/26/22 acetaminophen 325 mg tablet 650 mg PO Q6H PRN Pain, Mild (Pain 03/20/22 Scale 1-3) 30 days #240 tabs <АЛЕКСАНДР Navarrete - Last Filed: 09/23/22 11:29> Allergies/adverse reactions: Allergies Allergy/AdvReac Type Severity Reaction Status Date / Time Sulfa (Sulfonamide Allergy Intermediate Rash Verified 07/29/22 15:26 Antibiotics) [SULFA (SULFONAMIDE ANTIBIOTICS)] atorvastatin AdvReac Intermediate stomach Verified 07/29/22 15:26 pain <АЛЕКСАНДР Navarrete - Last Filed: 09/23/22 11:29> Review of Systems Review of Systems: Yes all other systems are reviewed and are negative <Homero Samson MD - Last Filed: 09/22/22 22:48> PMF Past Medical History Medical History: Medical History Arthritis COVID-19 vaccine series completed Depression Elevated cholesterol Hypothyroid Palpitations <АЛЕКСАНДР Navarrete - Last Filed: 09/23/22 11:29> Surgical History: Surgical History H/O colonoscopy History of cardiac radiofrequency ablation (RFA) Hx laparoscopic cholecystectomy Hx of hemorrhoidectomy Hx of varicose vein ligation <АЛЕКСАНДР Navarrete - Last Filed: 09/23/22 11:29> Social History Social History: Social History Household Members: Family Housing: House Are you a primary pet care worker to a significant other at home: No Do you presently have visiting nurse or other home services: No Patient Tobacco Use Status: Former Tobacco user Quit Date: age 32's Tobacco use type: Cigarette Advance Directives: No Advance Directives Information Provided: No service: No Current occupational status: unemployed <АЛЕКСАНДР Navarrete - Last Filed: 09/23/22 11:29> Physical Exam ED Vital Signs: Vital Signs - 24 hr 09/22/22 16:02 09/22/22 17:23 09/22/22 20:00 Temperature 97.8 F Pulse Rate 70 64 70 Respiratory Rate 20 14 18 Blood Pressure 170/121 H 134/80 121/85 Pulse Oximetry 99 96 97 Oxygen Delivery Method Room Air Room Air Room Air 09/22/22 21:54 Temperature 97.4 F Pulse Rate 66 Respiratory Rate 17 Blood Pressure 141/90 H Pulse Oximetry 97 Oxygen Delivery Method Room Air BMI result Body Mass Index 35.3 <АЛЕКСАНДР Navarrete - Last Filed: 09/23/22 11:29> Vital Signs - 24 hr 09/22/22 16:02 09/22/22 17:23 09/22/22 20:00 Temperature 97.8 F Pulse Rate 70 64 70 Respiratory Rate 20 14 18 Blood Pressure 170/121 H 134/80 121/85 Pulse Oximetry 99 96 97 Oxygen Delivery Method Room Air Room Air Room Air 09/22/22 21:54 Temperature 97.4 F Pulse Rate 66 Respiratory Rate 17 Blood Pressure 141/90 H Pulse Oximetry 97 Oxygen Delivery Method Room Air BMI result Body Mass Index 35.3 <Homero Samson MD - Last Filed: 09/22/22 22:48> Appearance: Alert. Oriented X3. No acute distress. Eyes: PERRLA, No Nystagmus ENT: Pharynx normal. Oral Mucosa moist Neck: Normal inspection. Neck supple. CVS: Normal heart rate and rhythm. Pulses normal. Respiratory: No respiratory distress. Equal air entry bilateral, no wheezing/rales/rhonchi Abdomen: Soft and nontender. Bowel sounds are present, no mass palpable, no CVA tenderness Skin: Skin warm and dry. Normal skin color. Normal skin turgor. Extremities: No lower extremity edema. No calf tenderness Neuro: Oriented X 3. No motor deficit. No sensory deficit.No cerebellar signs , cranial nerves II-XII intact <Homero Samson MD - Last Filed: 09/22/22 22:48> Course Course Course Narrative: RME: 67 yold female with intermetent chest pain for about week with also acid burning sensation. NEgative for leg swelling, pitting edema, calf pain, recent long travel, recent surgery, or estrogen use. labs and EKG ordered <АЛЕКСАНДР Navarrete - Last Filed: 09/23/22 11:29> Medications Administered Discontinued Medications Generic Name Dose Route Start Last Admin Trade Name Freq PRN Reason Stop Dose Admin Iohexol 100 ml 09/22/22 20:50 09/22/22 20:50 Iohexol 350 Mg/Ml 100 Ml Infus..Btl IV 09/22/22 20:51 65 ml ONCE ONE Administration <АЛЕКСАНДР Navarrete - Last Filed: 09/23/22 11:29> Medications Administered Discontinued Medications Generic Name Dose Route Start Last Admin Trade Name Kiara PRN Reason Stop Dose Admin Iohexol 100 ml 09/22/22 20:50 09/22/22 20:50 Iohexol 350 Mg/Ml 100 Ml Infus..Btl IV 09/22/22 20:51 65 ml ONCE ONE Administration <Homero Samson MD - Last Filed: 09/22/22 22:48> Medical Decision Making Medical Decision Making [facility] Narrative: Patient with chest pain for last 5 6 days EKG without any ischemic changes 2 sets of Hycet troponin negative D-dimer slightly elevated CTA chest was done which was negative for PE. Patient asymptomatic at this time advised to continu e aspirin follow up with film editor for further evaluation including the stress test <Homero Samson MD - Last Filed: 09/22/22 22:48> Lab Data [facility] Lab Attestation statement: I reviewed the patient's lab results. <Homero Samson MD - Last Filed: 09/22/22 22:48> Result Diagrams: 09/22/22 16:21 09/22/22 16:21 <АЛЕКСАНДР Navarrete - Last Filed: 09/23/22 11:29> Labs: Lab Results 09/22/22 09/22/22 09/22/22 Range/Units 16:20 16:21 16:21 WBC 6.2 (4.8-10.8) X10*3/uL RBC 4.34 (4.20-5.50) X10*6/uL Hgb 12.7 (12.0-16.0) g/dl Hct 38.8 (37.0-47.0) % MCV 89.4 (80.0-98.0) fL MCH 29.3 (27.0-33.0) pg MCHC 32.7 (31.0-35.0) g/dl RDW 14.7 (11.0-16.0) % Plt Count 245 (160-400) X10*3/uL MPV 10.3 (9.4-12.3) fL Immature Gran % (Auto) 0.8 H (0.0-0.4) % Neut % (Auto) 57.3 (45-73) % Lymph % (Auto) 24.0 (20-40) % [place] % (Auto) 10.4 (2-11) % Eos % (Auto) 6.5 H (0-4) % Baso % (Auto) 1.0 (0-2) % Lymph # (Auto) 1.5 (1.2-4.9) X10*3/uL [place] # (Auto) 0.6 (0.1-1.2) X10*3/uL Eos # (Auto) 0.4 (0.0-0.4) X10*3/uL Baso # (Auto) 0.1 (0.0-0.2) X10*3/uL Abs Immat Gran (auto) 0.05 H (0.00-0.03) X10*3/uL Absolute Neuts (auto) 3.5 (2.0-8.3) x10*3/uL Absolute Nucleated RBC 0.000 (0.0-0.012) X10*3/uL Nucleated RBC % (auto) 0.0 (0.0-0.2) /100WBC PT 10.7 (10.0-13.1) SEC INR 0.9 (0.9-1.1) APTT 32.1 (26.0-36.4) SEC D-Dimer High Sensitivty 502 NG/ML Sodium (135-145) mmol/L Potassium (3.3-5.1) mmol/L Chloride (96-108) mmol/L Carbon Dioxide (22-29) mmol/L Anion Gap (12-20) BUN (9-16) mg/dL Creatinine (0.5-1.4) mg/dL Estim Creat Clear Calc Estimated GFR Random Glucose (60-115) mg/dL Calcium (8.4-10.2) mg/dL Total Bilirubin (0.0-1.0) mg/dL AST (5-31) U/L ALT (0-31) U/L Alkaline Phosphatase (39-117) U/L Troponin I High Sens (<3.5-17.0) ng/L B-Natriuretic Peptide (<100) pg/mL Total Protein (6.5-8.0) g/dL Albumin (3.5-5.0) g/dL Lipase (8-78) U/L Influenza Type A (PCR) NEGATIVE (Negative) Influenza Type B (PCR) NEGATIVE (Negative) RSV RNA Qual (PCR) NEGATIVE (Negative) SARS-CoV-2 RNA (RT-PCR) NEGATIVE (Negative) 09/22/22 09/22/22 09/22/22 Range/Units 16:21 16:21 16:21 WBC (4.8-10.8) X10*3/uL RBC (4.20-5.50) X10*6/uL Hgb (12.0-16.0) g/dl Hct (37.0-47.0) % MCV (80.0-98.0) fL MCH (27.0-33.0) pg MCHC (31.0-35.0) g/dl RDW (11.0-16.0) % Plt Count (160-400) X10*3/uL MPV (9.4-12.3) fL Immature Gran % (Auto) (0.0-0.4) % Neut % (Auto) (45-73) % Lymph % (Auto) (20-40) % [place] % (Auto) (2-11) % Eos % (Auto) (0-4) % Baso % (Auto) (0-2) % Lymph # (Auto) (1.2-4.9) X10*3/uL [place] # (Auto) (0.1-1.2) X10*3/uL Eos # (Auto) (0.0-0.4) X10*3/uL Baso # (Auto) (0.0-0.2) X10*3/uL Abs Immat Gran (auto) (0.00-0.03) X10*3/uL Absolute Neuts (auto) (2.0-8.3) x10*3/uL Absolute Nucleated RBC (0.0-0.012) X10*3/uL Nucleated RBC % (auto) (0.0-0.2) /100WBC PT (10.0-13.1) SEC INR (0.9-1.1) APTT (26.0-36.4) SEC D-Dimer High Sensitivty NG/ML Sodium 142 (135-145) mmol/L Potassium 4.3 (3.3-5.1) mmol/L Chloride 107 (96-108) mmol/L Carbon Dioxide 26 (22-29) mmol/L Anion Gap 13 (12-20) BUN 23 H (9-16) mg/dL Creatinine 0.68 (0.5-1.4) mg/dL Estim Creat Clear Calc 98.0 Estimated GFR > 60 Random Glucose 98 (60-115) mg/dL Calcium 8.9 D (8.4-10.2) mg/dL Total Bilirubin 0.4 (0.0-1.0) mg/dL AST 17 (5-31) U/L ALT 18 (0-31) U/L Alkaline Phosphatase 67 (39-117) U/L Troponin I High Sens < 3.5 (<3.5-17.0) ng/L B-Natriuretic Peptide 64 (<100) pg/mL Total Protein 7.1 (6.5-8.0) g/dL Albumin 4.4 (3.5-5.0) g/dL Lipase 30 (8-78) U/L Influenza Type A (PCR) (Negative) Influenza Type B (PCR) (Negative) RSV RNA Qual (PCR) (Negative) SARS-CoV-2 RNA (RT-PCR) (Negative) 09/22/22 Range/Units 19:35 WBC (4.8-10.8) X10*3/uL RBC (4.20-5.50) X10*6/uL Hgb (12.0-16.0) g/dl Hct (37.0-47.0) % MCV (80.0-98.0) fL MCH (27.0-33.0) pg MCHC (31.0-35.0) g/dl RDW (11.0-16.0) % Plt Count (160-400) X10*3/uL MPV (9.4-12.3) fL Immature Gran % (Auto) (0.0-0.4) % Neut % (Auto) (45-73) % Lymph % (Auto) (20-40) % [place] % (Auto) (2-11) % Eos % (Auto) (0-4) % Baso % (Auto) (0-2) % Lymph # (Auto) (1.2-4.9) X10*3/uL [place] # (Auto) (0.1-1.2) X10*3/uL Eos # (Auto) (0.0-0.4) X10*3/uL Baso # (Auto) (0.0-0.2) X10*3/uL Abs Immat Gran (auto) (0.00-0.03) X10*3/uL Absolute Neuts (auto) (2.0-8.3) x10*3/uL Absolute Nucleated RBC (0.0-0.012) X10*3/uL Nucleated RBC % (auto) (0.0-0.2) /100WBC PT (10.0-13.1) SEC INR (0.9-1.1) APTT (26.0-36.4) SEC D-Dimer High Sensitivty NG/ML Sodium (135-145) mmol/L Potassium (3.3-5.1) mmol/L Chloride (96-108) mmol/L Carbon Dioxide (22-29) mmol/L Anion Gap (12-20) BUN (9-16) mg/dL Creatinine (0.5-1.4) mg/dL Estim Creat Clear Calc Estimated GFR Random Glucose (60-115) mg/dL Calcium (8.4-10.2) mg/dL Total Bilirubin (0.0-1.0) mg/dL AST (5-31) U/L ALT (0-31) U/L Alkaline Phosphatase (39-117) U/L Troponin I High Sens < 3.5 (<3.5-17.0) ng/L B-Natriuretic Peptide (<100) pg/mL Total Protein (6.5-8.0) g/dL Albumin (3.5-5.0) g/dL Lipase (8-78) U/L Influenza Type A (PCR) (Negative) Influenza Type B (PCR) (Negative) RSV RNA Qual (PCR) (Negative) SARS-CoV-2 RNA (RT-PCR) (Negative) <АЛЕКСАНДР Navarrete - Last Filed: 09/23/22 11:29> Lab Results 09/22/22 09/22/22 09/22/22 Range/Units 16:20 16:21 16:21 WBC 6.2 (4.8-10.8) X10*3/uL RBC 4.34 (4.20-5.50) X10*6/uL Hgb 12.7 (12.0-16.0) g/dl Hct 38.8 (37.0-47.0) % MCV 89.4 (80.0-98.0) fL MCH 29.3 (27.0-33.0) pg MCHC 32.7 (31.0-35.0) g/dl RDW 14.7 (11.0-16.0) % Plt Count 245 (160-400) X10*3/uL MPV 10.3 (9.4-12.3) fL Immature Gran % (Auto) 0.8 H (0.0-0.4) % Neut % (Auto) 57.3 (45-73) % Lymph % (Auto) 24.0 (20-40) % [place] % (Auto) 10.4 (2-11) % Eos % (Auto) 6.5 H (0-4) % Baso % (Auto) 1.0 (0-2) % Lymph # (Auto) 1.5 (1.2-4.9) X10*3/uL [place] # (Auto) 0.6 (0.1-1.2) X10*3/uL Eos # (Auto) 0.4 (0.0-0.4) X10*3/uL Baso # (Auto) 0.1 (0.0-0.2) X10*3/uL Abs Immat Gran (auto) 0.05 H (0.00-0.03) X10*3/uL Absolute Neuts (auto) 3.5 (2.0-8.3) x10*3/uL Absolute Nucleated RBC 0.000 (0.0-0.012) X10*3/uL Nucleated RBC % (auto) 0.0 (0.0-0.2) /100WBC PT 10.7 (10.0-13.1) SEC INR 0.9 (0.9-1.1) APTT 32.1 (26.0-36.4) SEC D-Dimer High Sensitivty 502 NG/ML Sodium (135-145) mmol/L Potassium (3.3-5.1) mmol/L Chloride (96-108) mmol/L Carbon Dioxide (22-29) mmol/L Anion Gap (12-20) BUN (9-16) mg/dL Creatinine (0.5-1.4) mg/dL Estim Creat Clear Calc Estimated GFR Random Glucose (60-115) mg/dL Calcium (8.4-10.2) mg/dL Total Bilirubin (0.0-1.0) mg/dL AST (5-31) U/L ALT (0-31) U/L Alkaline Phosphatase (39-117) U/L Troponin I High Sens (<3.5-17.0) ng/L B-Natriuretic Peptide (<100) pg/mL Total Protein (6.5-8.0) g/dL Albumin (3.5-5.0) g/dL Lipase (8-78) U/L Influenza Type A (PCR) NEGATIVE (Negative) Influenza Type B (PCR) NEGATIVE (Negative) RSV RNA Qual (PCR) NEGATIVE (Negative) SARS-CoV-2 RNA (RT-PCR) NEGATIVE (Negative) 09/22/22 09/22/22 09/22/22 Range/Units 16:21 16:21 16:21 WBC (4.8-10.8) X10*3/uL RBC (4.20-5.50) X10*6/uL Hgb (12.0-16.0) g/dl Hct (37.0-47.0) % MCV (80.0-98.0) fL MCH (27.0-33.0) pg MCHC (31.0-35.0) g/dl RDW (11.0-16.0) % Plt Count (160-400) X10*3/uL MPV (9.4-12.3) fL Immature Gran % (Auto) (0.0-0.4) % Neut % (Auto) (45-73) % Lymph % (Auto) (20-40) % [place] % (Auto) (2-11) % Eos % (Auto) (0-4) % Baso % (Auto) (0-2) % Lymph # (Auto) (1.2-4.9) X10*3/uL [place] # (Auto) (0.1-1.2) X10*3/uL Eos # (Auto) (0.0-0.4) X10*3/uL Baso # (Auto) (0.0-0.2) X10*3/uL Abs Immat Gran (auto) (0.00-0.03) X10*3/uL Absolute Neuts (auto) (2.0-8.3) x10*3/uL Absolute Nucleated RBC (0.0-0.012) X10*3/uL Nucleated RBC % (auto) (0.0-0.2) /100WBC PT (10.0-13.1) SEC INR (0.9-1.1) APTT (26.0-36.4) SEC D-Dimer High Sensitivty NG/ML Sodium 142 (135-145) mmol/L Potassium 4.3 (3.3-5.1) mmol/L Chloride 107 (96-108) mmol/L Carbon Dioxide 26 (22-29) mmol/L Anion Gap 13 (12-20) BUN 23 H (9-16) mg/dL Creatinine 0.68 (0.5-1.4) mg/dL Estim Creat Clear Calc 98.0 Estimated GFR > 60 Random Glucose 98 (60-115) mg/dL Calcium 8.9 D (8.4-10.2) mg/dL Total Bilirubin 0.4 (0.0-1.0) mg/dL AST 17 (5-31) U/L ALT 18 (0-31) U/L Alkaline Phosphatase 67 (39-117) U/L Troponin I High Sens < 3.5 (<3.5-17.0) ng/L B-Natriuretic Peptide 64 (<100) pg/mL Total Protein 7.1 (6.5-8.0) g/dL Albumin 4.4 (3.5-5.0) g/dL Lipase 30 (8-78) U/L Influenza Type A (PCR) (Negative) Influenza Type B (PCR) (Negative) RSV RNA Qual (PCR) (Negative) SARS-CoV-2 RNA (RT-PCR) (Negative) 09/22/22 Range/Units 19:35 WBC (4.8-10.8) X10*3/uL RBC (4.20-5.50) X10*6/uL Hgb (12.0-16.0) g/dl Hct (37.0-47.0) % MCV (80.0-98.0) fL MCH (27.0-33.0) pg MCHC (31.0-35.0) g/dl RDW (11.0-16.0) % Plt Count (160-400) X10*3/uL MPV (9.4-12.3) fL Immature Gran % (Auto) (0.0-0.4) % Neut % (Auto) (45-73) % Lymph % (Auto) (20-40) % [place] % (Auto) (2-11) % Eos % (Auto) (0-4) % Baso % (Auto) (0-2) % Lymph # (Auto) (1.2-4.9) X10*3/uL [place] # (Auto) (0.1-1.2) X10*3/uL Eos # (Auto) (0.0-0.4) X10*3/uL Baso # (Auto) (0.0-0.2) X10*3/uL Abs Immat Gran (auto) (0.00-0.03) X10*3/uL Absolute Neuts (auto) (2.0-8.3) x10*3/uL Absolute Nucleated RBC (0.0-0.012) X10*3/uL Nucleated RBC % (auto) (0.0-0.2) /100WBC PT (10.0-13.1) SEC INR (0.9-1.1) APTT (26.0-36.4) SEC D-Dimer High Sensitivty NG/ML Sodium (135-145) mmol/L Potassium (3.3-5.1) mmol/L Chloride (96-108) mmol/L Carbon Dioxide (22-29) mmol/L Anion Gap (12-20) BUN (9-16) mg/dL Creatinine (0.5-1.4) mg/dL Estim Creat Clear Calc Estimated GFR Random Glucose (60-115) mg/dL Calcium (8.4-10.2) mg/dL Total Bilirubin (0.0-1.0) mg/dL AST (5-31) U/L ALT (0-31) U/L Alkaline Phosphatase (39-117) U/L Troponin I High Sens < 3.5 (<3.5-17.0) ng/L B-Natriuretic Peptide (<100) pg/mL Total Protein (6.5-8.0) g/dL Albumin (3.5-5.0) g/dL Lipase (8-78) U/L Influenza Type A (PCR) (Negative) Influenza Type B (PCR) (Negative) RSV RNA Qual (PCR) (Negative) SARS-CoV-2 RNA (RT-PCR) (Negative) <Homero Samson MD - Last Filed: 09/22/22 22:48> Independent Interpretation I performed an independent interpretation of an: EKG <Homero Samson MD - Last Filed: 09/22/22 22:48> Interpretation: Normal sinus rhythm heart rate 72 beats per minute normal interval normal axis no acute ST changes no acute ischemia <Homero Samson MD - Last Filed: 09/22/22 22:48> Discharge Plan Discharge Clinical Impression: Chest pain <АЛЕКСАНДР Navarrete - Last Filed: 09/23/22 11:29> Patient Disposition: Home, Self-Care <АЛЕКСАНДР Navarrete - Last Filed: 09/23/22 11:29> Instructions: Chest Pain (ED) <АЛЕКСАНДР Navarrete - Last Filed: 09/23/22 11:29> Additional Instructions: Continue to take baby aspirin daily Follow-up with cardiology for further evaluation Report to the ER if worsening of the chest pain <АЛЕКСАНДР Navarrete - Last Filed: 09/23/22 11:29> Prescriptions: No Action (DME) agusto Linaresc See Rx Instructions .MEDSUPPLY Qty: 1 0RF Rx Instructions: Folding Front wheeled walker acetaminophen 325 mg tablet 650 mg PO Q6H PRN (Reason: Pain, Mild (Pain Scale 1-3)) 30 Days Qty: 240 0RF fluoxetine 20 mg tablet 40 mg PO DAILY levothyroxine 50 mcg capsule 50 mcg PO DAILY rosuvastatin 10 mg tablet 10 mg PO DAILY aspirin [Adult Low Dose Aspirin] 81 mg tablet,delayed release (DR/EC) 81 mg PO DAILY <АЛЕКСАНДР Navarrete - Last Filed: 09/23/22 11:29> Referrals: Rajeev Santana MD [Physician] - 1 week <АЛЕКСАНДР Navarrete - Last Filed: 09/23/22 11:29> Interventions: ED Discharge Assessment Last Done: 09/22/22 22:59 <АЛЕКСАНДР Navarrete - Last Filed: 09/23/22 11:29> Discharge Date/Time: 09/22/22 23:00 <АЛЕКСАНДР Navarrete - Last Filed: 09/23/22 11:29>
[2022-09-22 16:25] LABS: MANUAL DIFF FLAG NO
[2022-09-22 16:27] LABS: Basophils Absolute Auto 0.1 X10*3/uL (0.0-0.2); Eosinophils Absolute Auto 0.4 X10*3/uL (0.0-0.4); Eosinophils Percent Auto 6.5 % (0-4); Hematocrit 38.8 % (37.0-47.0); Hemoglobin 12.7 g/dl (12.0-16.0); Imm Gran Abs Auto 0.05 X10*3/uL (0.00-0.03); Imm Gran Pct Auto 0.8 % (0.0-0.4); Lymphocytes Absolute Auto 1.5 X10*3/uL (1.2-4.9); Mean Corpuscular HGB Conc 32.7 g/dl (31.0-35.0); Mean Corpuscular Hemoglobin 29.3 pg (27.0-33.0); Mean Corpuscular Volume 89.4 fL (80.0-98.0); Mean Platelet Volume 10.3 fL (9.4-12.3); Monocytes Absolute Auto 0.6 X10*3/uL (0.1-1.2); Monocytes Percent Auto 10.4 % (2-11); Neutrophils Absolute Auto 3.5 x10*3/uL (2.0-8.3); Neutrophils Percent Auto 57.3 % (45-73); Platelet Count 245 X10*3/uL (160-400); Red Blood Count 4.34 X10*6/uL (4.20-5.50); Red Cell Distribution Width 14.7 % (11.0-16.0); White Blood Count 6.2 X10*3/uL (4.8-10.8)
[2022-09-22 16:33] LABS: INTERNATIONAL NORM RATIO 0.9 (0.9-1.1); Prothrombin Time 10.7 SEC (10.0-13.1)
[2022-09-22 16:36] LABS: Partial Thromboplastin Time 32.1 SEC (26.0-36.4)
[2022-09-22 16:42] LABS: Alanine Aminotransferase 18 U/L (0-31); Albumin Level 4.4 g/dL (3.5-5.0); Alkaline Phosphatase 67 U/L (39-117); Anion Gap 13 (12-20); Aspartate Amino Transferase 17 U/L (5-31); Bilirubin Total 0.4 mg/dL (0.0-1.0); Blood Urea Nitrogen 23 mg/dL (9-16); Calcium 8.9 mg/dL (8.4-10.2); Carbon Dioxide 26 mmol/L (22-29); Chloride 107 mmol/L (96-108); Estimated Glomerular Filt Rate > 60; Glucose Random 98 mg/dL (60-115); Lipase 30 U/L (8-78); Potassium 4.3 mmol/L (3.3-5.1); Sodium 142 mmol/L (135-145); Total Protein 7.1 g/dL (6.5-8.0)
[2022-09-22 16:48] LABS: B Type Natriuretic Peptide 64 pg/mL (<100)
[2022-09-22 16:52] LABS: Troponin-I High Sensitivity < 3.5 ng/L (<3.5-17.0)
[2022-09-22 17:07] LABS: Influenza A PCR NEGATIVE (Negative); Influenza B PCR NEGATIVE (Negative); Resp Syncy Virus RNA Qual PCR NEGATIVE (Negative); SARS COV2 PCR INHOUSE NEGATIVE (Negative)
[2022-09-22 17:23] VITALS: BP 134/80; PULSE 64; RESP 14; O2SAT 96
[2022-09-22 18:08] LABS: D Dimer High Sensitivity 502 NG/ML
[2022-09-22 20:00] VITALS: BP 121/85; PULSE 70; RESP 18; O2SAT 97
--- NOTE | 2022-09-22 20:03 | PC.NURSE ---
Addendum entered by Griselda Ro 09/22/22 20:34: IV line established, intact and patent. Original Note: This specification writer assumed care of this PT at 1900. PT denies any pain, CP, or palpitations. Visitor at bedside translating. VSS. No apparent distress.
[2022-09-22 20:24] LABS: Troponin-I High Sensitivity < 3.5 ng/L (<3.5-17.0)
[2022-09-22] MEDS: iohexoL 350 MG/ML 100 ML INFUS..BTL IV (20:50)
[2022-09-22 21:54] VITALS: BP 141/90; PULSE 66; RESP 17; TEMP 36.3; O2SAT 97
== END 2022-09-22 23:00 | disposition home or self-care (01) ==
PROVIDERS: Physician Assistant; Emergency Provider Internal Medicine; PCP Internal Medicine
DX: R07.9 Chest pain, unspecified (principal); R06.02 Shortness of breath; Z20.822 Contact with and (suspected) exposure to COVID-19; E78.5 Hyperlipidemia, unspecified; Z90.49 Acquired absence of other specified parts of digestive tract; Z87.891 Personal history of nicotine dependence; Z79.82 Long term (current) use of aspirin; Z79.02 Long term (current) use of antithrombotics/antiplatelets; Z79.899 Other long term (current) drug therapy
CPT/HCPCS: 0241U; 36415; 71045; 71275; 80053; 83690; 83880; 84484; 85025; 85379; 85610; 85730; 93005; 99284; 99285; Q9967

== ENCOUNTER → 2022-10-10 08:52 | Outpatient (BNVA) | payer MEDICARE, SELFPAY | PROVIDERS: PCP Internal Medicine; Visit Provider Internal Medicine Cardiovascular Disease | DX: R07.9 Chest pain, unspecified (principal) | CPT/HCPCS: 93005; 99202 ==

== ENCOUNTER → 2022-10-13 08:31 | Outpatient (REF) | payer MEDICARE, SELFPAY ==
--- NOTE | ~2022-10-13 | NM_ITS ---
EXERCISE MYOCARDIAL PERFUSION STUDY INDICATION: Chest pain, assess for coronary disease and ischemia TECHNIQUE: The patient was brought in for an exercise perfusion study on 10/13/2022. Patient performed exercise as per Ruy protocol and was injected 35 mCi of sestamibi once target heart rate was achieved. Images were obtained using the SPECT gamma camera interlaced with the gating device. Images were obtained in supine position. Resting perfusion study was performed on 10/14/2022. Patient was administered 35 mCi of sestamibi intravenously at rest. Images were then obtained in supine position. Total DLP 115mGy-cm. Images were processed with the software and compared side to side in short axis, horizontal long axis and vertical long axis views. FINDINGS: Raw images were reviewed. The stress perfusion study showed no significant perfusion defects. Both uncorrected as well as CT attenuation corrected images were reviewed. The gated study shows normal LV systolic function with calculated LVEF of 63%. LV cavity is normal in size. The gated study shows normal wall thickening and contraction of segments. Resting study shows no significant perfusion defects. Gating at rest reveals normal wall motion with ejection fraction at 72%. The findings are consistent with no clear reversible or fixed perfusion defects. NM/NM cardiolite stress test IMPRESSION: 1. Myocardial perfusion imaging study shows likely normal myocardial perfusion. 2. Gated LVEF is 63% during stress; 72% during rest. 3. Transient ischemic dilatation not present. EKG component of the test reported separately.
--- NOTE | 2022-10-13 08:38 | CA_ITS ---
Acquisition Time: 2022-10-13 08:55:07 Total Exercise Time: 00:05:30 Test Indications: CHEST PAIN Medications: FLUOXETINE+ LEVOTHYROXINE ASA ROSUVASTATIN Protocol: RAS Max HR: 136 BPM 87% of Pred: 155 BPM Max BP: 180/088 mmHG Max Work Load: 7.0 METS Exercise stress test with exercise 5 min 30 sec of Ras protocol, achieving 86% MPHR, with moderate sob and fatigue, no chest discomfort, with isolated PVCs, with normotensive response to exercise, with borderline EKG changes inferiorly suggestive of possible ischemia. Nuclear images pending. Test reviewed with Dr Neff Referred By: Riley Neff Overread By: CHRISTOPHER ACOSTA
== END ==
LOC: HO.CARD 08:31
PROVIDERS: PCP Internal Medicine; Visit Provider Internal Medicine Cardiovascular Disease
DX: R07.9 Chest pain, unspecified (principal)
CPT/HCPCS: 78452; 93017; A9500

== ENCOUNTER → 2022-10-15 13:55 | Outpatient (REF) | payer MEDICARE, SELFPAY ==
--- NOTE | 2022-10-15 13:59 | CA_ITS ---
Transthoracic Echocardiogram Patient (Last, First, Middle): Di Terrell, Gender: Female Date of : 1955 Age: 67 Procedure Date: 10/15/2022 Procedure Type: Transthoracic Echocardiogram Location: OP Height: 167.64 cm Weight: 99. kg BSA: 2.08 m2 Heart Rate: bpm BP: 134 / 80 mmHg Fraud Examiner: Referring MD: Riley Neff MD Monitoring Manager: Riley Neff MD Symptoms: R07.9 - Chest pain, unspecified Study Quality: Good ECG Rhythm: Sinus Conclusions: - 1. Normal LV systolic function with impaired relaxation filling pattern 2. Normal cardiac valvular Dopplers 3. Upper limits of normal RV systolic pressure 4. No pericardial effusion Findings Left Ventricle Normal left ventricular size, thickness, and systolic function. The visually estimated ejection fraction is between 60-65%. Spectral Doppler is indicative of an impaired relaxation filling pattern. E/E prime ratio is between 8 and 15 consistent with indeterminate filling pressures. Right Ventricle Normal right ventricular cavity size and systolic function. Atria The left atrium is likely dilated. Interatrial shunt cannot be excluded. The right atrium is normal in size. Aortic Valve Normal aortic valve structure and function. There is no aortic valve stenosis. There is no aortic valve regurgitation. Mitral Valve Normal mitral valve structure and function. There is trace mitral valve regurgitation. There is no mitral valve stenosis. Pulmonic Valve The pulmonic valve is likely normal. There is trace to mild pulmonic valve regurgitation. Tricuspid Valve Normal tricuspid valve structure. The right ventricular systolic pressure is 37 mmHg. There is no evidence of pulmonary hypertension. Great Vessels All visible segments of the aorta are normal in size. The pulmonary artery was not well visualized. Venous The inferior vena cava is normal in size and collapses greater than 50% with inspiration. Pericardium/Pleural There is no evidence of pericardial effusion. Prior Study Comparison No prior study available for comparison. Measurements 2D Linear Measurements IVSd: 1.01 0.6-0.9/0.6-1.0 cm LVIDd: 5.14 3.9-5.3/4.2-5.9 cm LVIDd Index: 2.47 2.4-3.2/2.2-3.1 cm/m2 LVIDs: 3.47 2.0-3.6 cm LVPWd: 1.09 0.7-1.1 cm Ao Root: 2.90 2.1-3.5 cm LA Diam: 4.20 2.7-3.8/3.0-4.0 cm LAIDs Index: 2.02 1.5-2.3 cm/m2 LV Mass: 328.04 67-162/88-224 g LV Mass Index: 157.71 43-95/49-115 g/m2 LVOT Diam: 2.20 3.0+(-)1.3 cm 2D Systolic Function EF 4C: 64.90 >55% EF 2C: 61.60 >55% EF BiP: 63.60 >55% Mitral Valve MV Pk E: 0.90 MV PK A: 0.74 MV Decel Time: 180.00 E/A: 1.20 E'Lateral: 9.03 E'Medial: 7.94 E/E' Med: 11.30 E/E' Lat: 10.00 PHT: 53.00 MVA PHT: 4.15 Decel Ritchie: 5.01 Aortic Valve AoV Pk Juvenal: 1.58 AoV Mn Juvenal: 0.95 AoV VTI: 0.34 AoV Pk Grad: 10.00 Aov Mn Grad: 4.00 STACI Cont.VTI: 2.88 LVOT LVOT Pk Juvenal: 1.01 LVOT Mn Juvenal: 0.67 LVOT VTI: 0.26 LVOT Pk Grad: 4.00 LVOT Mn Grad: 2.00 LVOT Diam: 2.20 LVOT Area: 3.80 Diastolic Function MV Pk E: 0.90 MV Pk A: 0.74 E/A: 1.20 E'Medial: 7.94 E/E' Med: 11.30 E' Laterial: 9.03 E/E' Lat: 10.00 Right Ventricle TAPSE (mm): 31.00 TVS' Juvenal: 16.00 Tricuspid Valve TR Pk Juvenal: 2.93 TR Pk Grad: 34.00 RA Press: 3.00 RVSP: 37.00 Great Vessels Aorta Ao Root-2D: 2.90 2.0-3.7 cm Ao Asc: 3.20 2.1-3.4 cm Pulmonary Valve PV Pk Juvenal: 0.87 Peak PV Grad: 3.00 Updated in Other Vendor System with Status of Final Riley Neff MD electronically signed on 10/16/2022 4:55:26 PM with status of Final
--- NOTE | 2022-10-15 13:59 | HM_ITS ---
Conclusion: 1. Patient was monitored for total period of 6 days and 23 hours 2. Baseline was normal sinus rhythm with average heart of 66 beats per minute 3. Frequent sinus bradycardia with 39.3% of time heart rate below 60 beats per minute 4. Total of 1749 PACs accounting for 0.28% of total beats accounting for occasional PACs 5. Total of 10,120 PVCs accounting for 1.64% of total beats accounting for frequent PVCs 6. No significant pauses or bradycardia noted 7. Patient reported 1 event with no associated symptoms, correlating with sinus rhythm MTDD
== END ==
LOC: HO.CARD 13:55
PROVIDERS: PCP Internal Medicine; Visit Provider Internal Medicine Cardiovascular Disease
DX: R07.9 Chest pain, unspecified (principal)
CPT/HCPCS: 93242; 93306

== ENCOUNTER → 2022-11-13 13:40 | Outpatient (BNVA) | payer MEDICARE, SELFPAY | PROVIDERS: PCP Internal Medicine; Referring Provider Internal Medicine; Visit Provider Internal Medicine Cardiovascular Disease | DX: I49.3 Ventricular premature depolarization (principal); R07.9 Chest pain, unspecified | CPT/HCPCS: 99212 ==

== ENCOUNTER 2023-11-24 08:36 | Outpatient (AMB) | payer MEDICARE, SELFPAY ==
[2023-11-24 08:48] VITALS: BP 134/80; PULSE 72; BMI 34.9
--- NOTE | 2023-11-24 08:48 | MHC.OFFVIS ---
Intake Vital Signs 11/24/23 08:48 Height 5 ft 6 in Weight 216 lb 0.848 oz BMI 34.9 BP 134/80 Blood Pressure Location Lt brachial Position Sitting Pulse 72 Intake Visit Reasons: 1 yr f/up Intake Note: 1 year follow-up with ekg feeling good Community Relations Manager: Community Relations Manager Present Accompanied by: Family/Other Allergies Sulfa (Sulfonamide Antibiotics) [SULFA (SULFONAMIDE ANTIBIOTICS)] Allergy (Intermediate, Verified 10/10/22 09:10) Rash atorvastatin Adverse Reaction (Intermediate, Verified 10/10/22 09:10) stomach pain HPI HPI Comments History of Present Illness Details Di comes for follow-up. History was obtained with help of her son who was present. Patient has been doing well from cardiac perspective. She exercises and goes for a walk and has no exertional symptoms of chest pain or shortness of breath. No symptoms of skipped heartbeats or palpitations that are bothering her at this point in time. She is taking medication without any side effects. Denies any heart failure symptoms. No lightheadedness, syncope. PFSH Medical History Arthritis Palpitations COVID-19 vaccine series completed Hypothyroid Elevated cholesterol Depression Surgical History Hx laparoscopic cholecystectomy Hx of hemorrhoidectomy Hx of varicose vein ligation H/O colonoscopy History of cardiac radiofrequency ablation (RFA) Social History Household Members: Family Housing: House Are you a primary director critical care to a significant other at home: No Do you presently have visiting nurse or other home services: No Alcohol intake: current Alcohol intake frequency: holidays/special occasions only Alcohol type: wine Patient Tobacco Use Status: Former Tobacco user Quit Date: age 32's Tobacco use type: Cigarette service: No Current occupational status: unemployed Review of Systems Const Denies chills, Denies fatigue, Denies fever(s), Denies frequent falls, Denies weakness, Denies weight gain and Denies weight loss ENT Denies dizziness Card Denies chest pain, Denies leg edema, Denies lightheadedness, Denies palpitations, Denies dyspnea, Denies dyspnea on exertion, Denies orthopnea and Denies other (loss of consciousness) Resp Denies cough, Denies dyspnea and Denies dyspnea on exertion GI Denies hematochezia and Denies change in stool character Musc Denies abnormal gait, Denies muscle weakness, Denies numbness, Denies radiating pain into limb and Denies tingling Neuro Denies Abnormal speech present, Denies abnormal gait, Denies dizziness, Denies frequent falls, Denies numbness, Denies tingling and Denies weakness Endo Denies fatigue and Denies palpitations Physical Exam Vital Signs: Last Vital Signs Pulse 72 11/24/23 08:48 BP 134/80 11/24/23 08:48 BMI result Body Mass Index 34.9 Const General: cooperative, comfortable, no acute distress, alert, awake, Physically active and well groomed Nutritional Appearance: obese Orientation/consciousness: patient oriented x3 Limitations: no limitations Neck Neck: Yes trachea midline, Yes supple and Yes no JVD Resp Effort & Inspection: normal respiratory effort Auscultation: clear to auscultation bilaterally Cardio Jugular venous distension: no JVD Palpation: normal PMI Rate: regular rate Rhythm: regular rhythm Heart sounds: S1 normal heart sound present, S2 normal heart sound present, no click, no gallops, no murmurs and no rubs Neuro General: patient oriented x3 and no focal motor deficits Speech: No Abnormal speech present Office Procedures EKG Details: EKG shows normal sinus rhythm with normal EKG [id number], Complete Assessment & Plan Assessment & Plan (1) PVCs (premature ventricular contractions): Code(s): I49.3 - Ventricular premature depolarization Plan: Frequent PVCs in the past with symptoms now suppressed on metoprolol therapy. She has no recurrent symptoms at this point time. No other concerning cardiac symptoms. Continue metoprolol therapy. Management of isolated PVCs were discussed. Avoidance of stimulants was discussed. Advised to participate in stress mitigation strategies. Advised to participate in regular physical activity. Will follow up in the clinic if need be. Thank you for allowing me to partake in her care Coding Level of Care Code Est Pt Level 3 (33067) Diagnoses PVCs (premature ventricular contractions) I49.3 CPT Codes EKG - CPT: 28187-[id number], Complete ([id number])
== END 2023-11-24 09:03 | disposition home or self-care (01) ==
PROVIDERS: Visit Provider Internal Medicine Cardiovascular Disease
DX: I49.3 Ventricular premature depolarization (principal)
CPT/HCPCS: 93010; 99213

== ENCOUNTER → 2023-11-24 08:36 | Outpatient (BNVA) | payer MEDICARE, SELFPAY | PROVIDERS: Visit Provider Internal Medicine Cardiovascular Disease | DX: I49.3 Ventricular premature depolarization (principal); R00.2 Palpitations | CPT/HCPCS: 93005; 99212 ==

== ENCOUNTER → 2024-03-08 07:30 | Outpatient (REF) | payer MEDICARE, SELFPAY ==
--- NOTE | 2024-03-08 10:00 | HM_ITS ---
* Total monitoring time 7 days. * Underlying rhythm is sinus with an average rate of 77/Min. * Frequent supraventricular ectopy with a burden of 3%. Short runs noted. Longest 27 beats. Max rate 168/Min. * Rare ventricular ectopy. Few couplets noted. One run of 3 beats. * No significant pauses or AV blocks. * Patient markers used in association with ventricular ectopy. * Diary symptoms including 'cramp in the heart area', ' something blocking left side of neck' correlate with supraventricular and ventricular ectopy. MTDD
== END ==
LOC: HO.CARD 07:30
PROVIDERS: Visit Provider Internal Medicine Cardiovascular Disease
DX: I49.3 Ventricular premature depolarization (principal)
CPT/HCPCS: 93242

== ENCOUNTER → 2024-03-08 10:00 | Outpatient (BNV) | payer MEDICARE, SELFPAY | PROVIDERS: Visit Provider Internal Medicine | DX: I47.10 Supraventricular tachycardia, unspecified (principal) | CPT/HCPCS: 93244 ==